=== PATIENT | female | born 1955 | race Caucasian/White ===

== ENCOUNTER 2022-12-20 11:50 | Inpatient (IN) | payer OTHER, SELFPAY ==
--- NOTE | 2022-12-09 | ECG_ITS ---
Test Reason : HTN, TIA, XUAN Blood Pressure : / mmHG Vent. Rate : 066 BPM Atrial Rate : 066 BPM P-R Int : 170 ms QRS Dur : 094 ms QT Int : 434 ms P-R-T Axes : 035 -04 103 degrees QTc Int : 454 ms Normal sinus rhythm Nonspecific ST and T wave abnormality Abnormal ECG No previous ECGs available Referred By: Khushboo Combs Electronically Signed By:MICH STRICKLAND
[2022-12-09 12:21] VITALS: BP 156/76; PULSE 68; RESP 16; O2SAT 98; BMI 37.4
--- NOTE | 2022-12-09 12:35 | HO.ANESPROP2 ---
Documented by User: Khushboo Combs NP 12/17/22 09:44 HPI - Anesthesia Eval Consult details Narrative: 67yo F for Transkambin Lumbar Interbody Fusion, 12/20/22 Stable at PCP visit 10/2022 Pending neurologic clearance [facility] Past Medical History Medical History (Updated 12/20/22 @ 16:08 by SAM Tirado) Anxiety Asthma Conversion disorder Depression Diabetes Elevated cholesterol GERD (gastroesophageal reflux disease) HTN (hypertension) Hx of renal calculi Hx TIA/stroke w/o resid Insomnia Lower back pain XUAN (obstructive sleep apnea) Overactive bladder Shoulder pain, right Single kidney Thyroid condition Use of cane as ambulatory aid Family History Family history of problems with anesthesia: No Surgical History Surgical History History of bilateral knee replacement Hx laparoscopic cholecystectomy Hx of bilateral cataract extraction Hx of colonoscopy Hx of cystoscopy Hx of fusion of cervical spine Hx of tonsillectomy S/P surgery on nasal septum History of Problems with Anesthesia: No Social History Social History Household Members: Family Household Members Other:: granddaughter Housing: House Are you a primary ambulatory care coordinator to a significant other at home: No Do you presently have visiting nurse or other home services: Yes (HEALTH CENTER MANAGER) Patient Tobacco Use Status: Never used Tobacco Use of substances other than those prescribed or required for medical reasons: No Have you been hit, kicked, punched, or otherwise hurt by someone within the past year? If so, by whom?: No Do you feel safe in your current relationship?: No Current Relationship Is there a partner from a previous relationship who is making you feel unsafe now?: No Are you made to feel afraid or neglected: No Are you DNR?: No Advance Directives: No Advance Directives Information Provided: Yes Advance Directives on File: No Do you have thoughts of harming others: None Do you have a plan to hurt others: No Plan Recently lost weight without trying: No How much weight loss: 2-13 pounds Eating poorly because of decreased appetite: Yes Nutrition screen score: 2 Nutrition Risks: No Nutritional Risk Patient : No : No Narrative Narrative: No recent illness. Low energy. No CP/SOB within limits of back pain Meds Allergies Allergy/AdvReac Type Severity Reaction Status Date / Time Sulfa (Sulfonamide Allergy Intermediate Hives Verified 12/09/22 12:04 Antibiotics) Home Medications Medication Instructions Recorded Confirmed Last Taken Type acetaminophen 300 mg-codeine 30 mg 1 tab Q6H PRN Pain 12/09/22 12/09/22 Unknown History tablet acetaminophen 500 mg tablet 500 mg PO Q8H PRN pain 12/09/22 12/09/22 Unknown History albuterol sulfate 90 mcg/actuation 2 puff inhalation Q6H PRN wheezing 12/09/22 12/09/22 Unknown History aerosol inhaler clonazepam 1 mg tablet 1.5 mg PO BID PRN Anxiety 12/09/22 12/09/22 12/20/22 History cyanocobalamin (vitamin B-12) 1,000 mcg PO DAILY 12/09/22 12/09/22 Unknown History 1,000 mcg tablet duloxetine 40 mg capsule,delayed 40 mg PO DAILY 12/09/22 12/09/22 12/20/22 History release fluticasone propionate 110 1 puff inhalation BID 12/09/22 12/09/22 Unknown History mcg/actuation HFA aerosol inhaler (Flovent HFA) fluticasone propionate 50 2 spray intranasal DAILY 12/09/22 12/09/22 Unknown History mcg/actuation nasal spray,suspension hydroxyzine HCl 10 mg tablet 10 mg PO TID 12/09/22 12/09/22 Unknown History insulin glargine 100 unit/mL (3 50 unit subcut DAILY 12/09/22 12/09/22 Unknown History mL) subcutaneous pen (Lantus Solostar U-100 Insulin) insulin lispro 100 unit/mL subcut 12/09/22 Unknown History subcutaneous pen (Humalog KwikPen (U-100) Insulin) lidocaine 5 % topical patch 1 patch topical DAILY PRN Pain 12/09/22 12/09/22 Unknown History lisinopril 20 mg tablet 20 mg PO QAM 12/09/22 12/09/22 Unknown History lovastatin 20 mg tablet 20 mg PO BEDTIME 12/09/22 12/09/22 Unknown History pantoprazole 40 mg tablet,delayed 40 mg PO DAILY 12/09/22 12/09/22 12/20/22 History release trazodone 150 mg tablet 150 mg PO BEDTIME PRN Insomnia 12/09/22 12/09/22 Unknown History vibegron 75 mg tablet (Gemtesa) 75 mg PO DAILY 12/09/22 12/09/22 Unknown History Exam Exam Date and Time: December 09, 2022 1235 Height,Weight and Vital Signs: Height 5 ft 2 in Weight 92.8 kg Last Vital Signs Pulse 68 12/09/22 12:21 Resp 16 12/09/22 12:21 BP 156/76 H 12/09/22 12:21 Pulse Ox 98 12/09/22 12:21 O2 Del Method Room Air 12/09/22 12:21 Airway Mallampati Class: III TM Dist: >3cm Neck ROM: Limited (s/p cervical spine fusion 07/2022) Loose/Missing/Broken Teeth: Yes (Upper left cap side, missing front lower) Heart: RRR Lungs: CTAB Assessment and Plan Assessment Anesthesia Assessment: Anesthesia Plan Discussed and PAT Visit Final Anesthetic Review Family History of Problems with Anesthesia: No History of Problems with Anesthesia: No Documented by User: Jorge Cox MD 12/20/22 16:30 HPI - Anesthesia Eval Consult details Narrative: 67yo F for Transkambin Lumbar Interbody Fusion, 12/20/22 Stable at PCP visit 10/2022 As per patient had a CVA in the past , Right sided weakness , balance problems . 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 Insomnia Lower back pain XUAN (obstructive sleep apnea) Overactive bladder Shoulder pain, right Single kidney Thyroid condition Use of cane as ambulatory aid Functional capacity: uses cane/walker Surgical History Surgical History History of bilateral knee replacement Hx laparoscopic cholecystectomy Hx of bilateral cataract extraction Hx of colonoscopy Hx of cystoscopy Hx of fusion of cervical spine Hx of tonsillectomy S/P surgery on nasal septum Social History Social History Household Members: Family Household Members Other:: granddaughter Housing: House Are you a primary ambulatory care coordinator to a significant other at home: No Do you presently have visiting nurse or other home services: Yes (HEALTH CENTER MANAGER) Patient Tobacco Use Status: Never used Tobacco Use of substances other than those prescribed or required for medical reasons: No Have you been hit, kicked, punched, or otherwise hurt by someone within the past year? If so, by whom?: No Do you feel safe in your current relationship?: No Current Relationship Is there a partner from a previous relationship who is making you feel unsafe now?: No Are you made to feel afraid or neglected: No Are you DNR?: No Advance Directives: No Advance Directives Information Provided: Yes Advance Directives on File: No Do you have thoughts of harming others: None Do you have a plan to hurt others: No Plan Recently lost weight without trying: No How much weight loss: 2-13 pounds Eating poorly because of decreased appetite: Yes Nutrition screen score: 2 Nutrition Risks: No Nutritional Risk Patient : No : No Meds Allergies Allergy/AdvReac Type Severity Reaction Status Date / Time Sulfa (Sulfonamide Allergy Intermediate Hives Verified 12/09/22 12:04 Antibiotics) Home Medications Medication Instructions Recorded Confirmed Last Taken Type acetaminophen 300 mg-codeine 30 mg 1 tab Q6H PRN Pain 12/09/22 12/09/22 Unknown History tablet acetaminophen 500 mg tablet 500 mg PO Q8H PRN pain 12/09/22 12/09/22 Unknown History albuterol sulfate 90 mcg/actuation 2 puff inhalation Q6H PRN wheezing 12/09/22 12/09/22 Unknown History aerosol inhaler clonazepam 1 mg tablet 1.5 mg PO BID PRN Anxiety 12/09/22 12/09/22 12/20/22 History cyanocobalamin (vitamin B-12) 1,000 mcg PO DAILY 12/09/22 12/09/22 Unknown History 1,000 mcg tablet duloxetine 40 mg capsule,delayed 40 mg PO DAILY 12/09/22 12/09/22 12/20/22 History release fluticasone propionate 110 1 puff inhalation BID 12/09/22 12/09/22 Unknown History mcg/actuation HFA aerosol inhaler (Flovent HFA) fluticasone propionate 50 2 spray intranasal DAILY 12/09/22 12/09/22 Unknown History mcg/actuation nasal spray,suspension hydroxyzine HCl 10 mg tablet 10 mg PO TID 12/09/22 12/09/22 Unknown History insulin glargine 100 unit/mL (3 50 unit subcut DAILY 12/09/22 12/09/22 Unknown History mL) subcutaneous pen (Lantus Solostar U-100 Insulin) insulin lispro 100 unit/mL subcut 12/09/22 Unknown History subcutaneous pen (Humalog KwikPen (U-100) Insulin) lidocaine 5 % topical patch 1 patch topical DAILY PRN Pain 12/09/22 12/09/22 Unknown History lisinopril 20 mg tablet 20 mg PO QAM 12/09/22 12/09/22 Unknown History lovastatin 20 mg tablet 20 mg PO BEDTIME 12/09/22 12/09/22 Unknown History pantoprazole 40 mg tablet,delayed 40 mg PO DAILY 12/09/22 12/09/22 12/20/22 History release trazodone 150 mg tablet 150 mg PO BEDTIME PRN Insomnia 12/09/22 12/09/22 Unknown History vibegron 75 mg tablet (Gemtesa) 75 mg PO DAILY 12/09/22 12/09/22 Unknown History Assessment and Plan Assessment Anesthesia Assessment: Chart Reviewed Final Anesthetic Review NPO: Yes ASA Class: III Final Preanesthetic Review: Meds/Allgs Chart Reviewed, Consent Obtained/Reviewed and Anes Risks/Benef Reviewed Patient Risk: Intermediate Procedure Risk: Intermediate Anesthetic Plan Anesthetic Plan: GA and Agree w/ Assess. and Plan Disposition: Standard PACU
[2022-12-09 13:58] LABS: Hematocrit 44.1 % (37.0-47.0); Hemoglobin 14.3 g/dl (12.0-16.0); Mean Corpuscular HGB Conc 32.4 g/dl (31.0-35.0); Mean Corpuscular Hemoglobin 26.9 pg (27.0-33.0); Mean Corpuscular Volume 82.9 fL (80.0-98.0); Mean Platelet Volume 9.4 fL (9.4-12.3); Platelet Count 324 X10*3/uL (160-400); Red Blood Count 5.32 X10*6/uL (4.20-5.50); Red Cell Distribution Width 13.8 % (11.0-16.0); White Blood Count 9.9 X10*3/uL (4.8-10.8)
[2022-12-09 14:05] LABS: Estimated Average Glucose 171 mg/dL; Hemoglobin A1c % 7.6 %
[2022-12-09 14:45] LABS: Anion Gap 12 (12-20); Blood Urea Nitrogen 13 mg/dL (9-16); Calcium 9.6 mg/dL (8.4-10.2); Carbon Dioxide 30 mmol/L (22-29); Chloride 104 mmol/L (96-108); Creatinine Clr Calc Pharmacy 71.4; Estimated Glomerular Filt Rate > 60; Glucose Random 115 mg/dL (60-115); Sodium 142 mmol/L (135-145)
[2022-12-20] VITALS (20 sets, daily range): BP systolic 149–190; BP diastolic 80–102; PULSE 73–97; RESP 11–19; TEMP 36–36.3; O2SAT 94–100
--- NOTE | ~2022-12-20 | FL_ITS ---
EXAMINATION: XR FLUOROSCOPY WITH IMAGES CLINICAL INFORMATION: Follow-up fusion. COMPARISON: None available. TECHNIQUE: Fluoroscopy Supervised By: Dr. Dooley. Fluoroscopy Time: 1.2 minutes. Cumulative Dose: 104 mGy. DAP: 1.10 Gycm2. Images: 2. FINDINGS: There are L4 and L5 pedicle screws and interconnecting nam with L4-L5 disc prosthesis for fusion. Visualized disc heights, vertebral heights are normal. FL/FL guidance in OR IMPRESSION: Fluoroscopy was provided to referring physician for L4-L5 fusion.
[2022-12-20] MEDS: methocarbamoL 750 MG TABLET PO (07:08)
[2022-12-20] MEDS: Gabapentin 600 MG TABLET 300 MG PO (07:08)
[2022-12-20] MEDS: Lactated Ringers 1,000 ML 100 ML IVCONT (07:10)
--- NOTE | 2022-12-20 10:28 | W.PM.OPN ---
Operative Note Operative Note Date of Service: 12/20/22 Narrative: Preoperative Diagnosis: (1) lumbar degenerative disc disease L4-5 with chronic back pain (2) Same Procedure: 1) L4-5oblique lateral lumbar interbody fusion with discectomy, preparation of the endplates and placement of a bullet cage packed with allograft, anterior to the transverse process and modified prone position, with intraoperative biplanar fluoroscopy imaging and electrophysiological monitoring 2) L4-5posterior minimally invasive pedicle screw placement and posterior lateral instrumentation and fusion with electrophysiological monitoring Consent Informed Consent was obtained for this operation. I have explained the nature, purpose and benefits of the operation. I have discussed the risks and benefit of the operation including possible complications or adverse events with patient/family. Alternative(s) were discussed with the patient with their relative benefits and risks as well as the consequences of not accepting the operation were included in obtaining consent. Surgeon: BORA ARNOLD MD, PHD Procedure Assisted By: Alberto Olmos Description of Procedure: days is a 67-year-old female suffered from chronic back pain due to severe lumbar degenerative disease L4-5.The patient was offered an oblique lumbar lateral interbody fusion followed by a posterior lateral instrumented fusion[]. The procedure and complications were explained and he was consented. The patient was brought to the operating room and endotracheally intubated. The patient was put in a prone position on the Rell spine table. 2C arms were installed for fluoroscopy. Prepping and draping was done followed by timeout. The landmarks, including spinal processes, transverse processes, disc space, endplates and pedicles are identified and marked. The following steps are taken for the L4-5 level: Cage size 9 mm high and 30 mm long titanium . A small incision was made superior to the mid iliac crest and then using biplanar fluoroscopy visualization, under electrophysiological monitoring and stimulation, we introduced an electrophysiological probe through the retroperitoneal space into the desired disc anterior to the transverse process and then passed it into the disc space after finding a silent window. The sleeve was retained and the probe was removed, then the K wire was passed sequentially into the disc space. A dilating tube was then passed along the same route. Following this, a working channel was manually held in position while a series of disc cleaning tools were passed through the channel to remove the affected disc under clear and direct biplanar fluoroscopic visualization, decompress the nerve roots and equal corticated vertebral endplates at this segment. Arthrodesis of the intervertebral space for an anterior retroperitoneal exposure and application of intervertebral biomechanical device was then accomplished by using the working channel that had been placed into the retroperitoneal space anterior to the transverse process. After adequate decompression and preparation of the endplates, we then put allograft anterior into the disc space followed by a titanium interbody spacer, which is packed tightly with allograft bone for stabilization and arthrodesis of the anterior vertebral space and inserted the cage into the midportion of the intervertebral disc. This again was done on the biplanar fluoroscopic visualization. All bone was confined to the borders of the disc space. The following steps are then taken for the L4-5 level: Bilateral L4-5 screws with a diameter of 6.5 x 40 mm. 2C arms were installed for fluoroscopy. A right paramedian incision was made lateral from the L4 pedicle. The Pediguard tap was used to create a transpedicular trajectory into the vertebral body. The K wire was inserted. The steps were repeated for the left L4 and bilateral L5 pedicles, A specially designed instrument was passed over the K wires to decorticate the posterior lateral gutter. A total of 4 pedicle screws were inserted with the above-mentioned diameters for the L4-5 level. Neurostimulation of the pedicle screw of showed no abnormalities. Bilaterally a 40mm nam was inserted and locked down with locking caps. Final x-rays and AP and lateral projection showed good position of the interbody device and instrumentation. Allograft was laid down in the posterior lateral gutter to complete the posterior lateral fusion. The paramedian incisions and the incision in the flank were closed in 2 layers. Steri-Strips were used to approximate the incisions. An OpSite with Tegaderm was used to cover the incision. All sponge and needle counts were correct. The patient was extubated and transported in a stable condition to the recovery room. This procedure was done with the aid of a physican's primary teaching assistant as a qualified resident was not available. The physician primary teaching assistant was critical for the following aspects of surgery : Insertion of the bilateral rods and locked down the rods with locking caps. Hemostasis and closure of the incisions. Anesthesia: General Estimated Blood Loss (ml): Ten Specimen: None Duration of Surgery: 75 minutes Postoperative Plan: Admit to floor for monitoring
--- NOTE | 2022-12-20 11:13 | PHA.MEDREC ---
Pharmacy Consult ? Medication Reconciliation Pharmacy has completed the medication reconciliation.
--- OUTSIDE RECORDS SUMMARY | 2022-12-20 11:20 | XMS_ITS | Continuity of Care Document ---
Author Name Unknown Organization [facility] Address [address] [facility], [address], [address] [place] [phone]- Care Team Providers Care Corporate Licensed Broker Name Role Phone Spike Araujo MD Primary Care Physician [id number] Date(s): 02/09/21 - 03/11/21 [facility] [address] [facility], [address]rd Floor, [address] [place] [phone]- Allergies, Adverse Reactions, Alerts Substance Reaction Severity Status codeine Active sulfADIAZINE Active Medications aspirin 81 mg oral tablet 1 tablet = 81 mg, By Mouth, Daily, # 30 tablet, 0 Refills, Maintenance, 03/25/14 21:09:06, Tablet Start Date: 03/25/14 Status: Ordered fluoxetine 10 mg oral capsule 1 capsule = 10 mg, By Mouth, Daily, # 30 capsule, 0 Refills, Maintenance, 03/25/14 21:10:04, Capsule Start Date: 03/25/14 Status: Ordered GlipiZIDE = 5 mg, By Mouth, Daily, 0 Refills, Maintenance, 06/23/17 11:57:20 Start Date: 06/23/17 Status: Ordered KlonoPIN 0.5 mg oral tablet 1 tablet = 0.5 mg, By Mouth, 2 times a day, 0 Refills, Maintenance, 06/23/17 11:57:57, Tablet Start Date: 06/23/17 Status: Ordered lantus solostar 100 unit/ml lantus solostar 100 unit/ml, Refills 0, Maintenance, 01/26/21 14:19:00 EDT, Supply Start Date: 01/26/21 Status: Ordered lidocaine 5% topical film 1 patch, Topically, Daily, PRN Pain , Mild, remove after 12 hours, # 13 each, 0 Refills, Maintenance, 01/26/21 14:20:00 EDT, Film, Partial fill upon patient request if the prescription is for a schedule II opioid drug. Start Date: 01/26/21 Status: Ordered lisinopril 10 mg oral tablet 10 mg, 1, tablet, By Mouth, Daily, # 30 tablet, Refills 0, Tot. Refills 0, Maintenance, 06/24/17 13:24:43, Route to Pharmacy Electronically, [id number], [facility]/pharmacy #[id number] Start Date: 06/24/17 Status: Ordered lovastatin 20 mg oral tablet 1 tablet, By Mouth, Daily, # 30 tablet, 0 Refills, Maintenance, Tablet Start Date: 01/13/11 Status: Ordered metformin 500 mg oral tablet 1 tablet, By Mouth, 2 times a day, # 180 tablet, 0 Refills, Maintenance, Tablet Start Date: 01/13/11 Status: Ordered one touch verio test stripts one touch verio test stripts, Refills 0, Maintenance, 01/26/21 14:18:00 EDT, Supply Start Date: 01/26/21 Status: Ordered one touh verio meter one touh verio meter, Refills 0, Maintenance, 01/26/21 14:21:00 EDT, Supply Start Date: 01/26/21 Status: Ordered pantoprazole 40 mg oral delayed release tablet 1 tablet = 40 mg, By Mouth, Daily, 0 Refills, Maintenance, 01/26/21 14:19:00 EDT Start Date: 01/26/21 Status: Ordered traZODone 50 mg oral tablet 50 mg, 1, tablet, By Mouth, 2 times a day, Refills 0, Maintenance, 01/26/21 14:19:00 EDT, Partial fill upon patient request if the prescription is for a schedule II opioid drug. Start Date: 01/26/21 Status: Ordered Wellbutrin XL 300 mg/24 hours oral tablet, extended release 1 tablet = 300 mg, By Mouth, Every 24 hours, 0 Refills, Maintenance Start Date: 01/13/11 Status: Ordered Problem List Condition Effective Dates Status Health Status Inform ant Fibrous joint(Confirmed) Active Social History Social History Type Response Smoking Status Former smoker entered on: 06/23/17 Sex
--- OUTSIDE RECORDS SUMMARY | 2022-12-20 11:20 | XMS_ITS | Continuity of Care Document ---
Author Name Unknown Organization [facility] Address Unknown Care Team Providers Care Provider Relations Manager Name Role Phone Spike Araujo MD Primary Care Phys[id number] Date(s): 04/24/21 - 05/24/21 [facility] Allergies, Adverse Reactions, Alerts Substance Reaction Severity [...] 06/23/17 11:57:20 Start Date: 06/23/17 Status: Ordered hydrOXYzine hydrochloride 10 mg oral tablet 1 tablet, By Mouth, 3 times a day, # 90 tablet, 1 Refills, [facility] [id number], 158, cm, 04/20/21 10:34:00 EDT, Height, 86.5, kg, 03/28/21 14:42:00 EDT, Dry Weight Start Date: 05/12/21 Status: Ordered KlonoPIN 0.5 mg oral tablet [...] Maintenance, 06/24/17 13:24:43, Route to Pharmacy Electronically, [id number], [facility]/pharmacy #[id number] Start Date: 06/24/17 Status: Ordered [...]
--- OUTSIDE RECORDS SUMMARY | 2022-12-20 11:20 | XMS_ITS | Continuity of Care Document ---
Author Name Unknown Organization [facility] Address [address] [place] [id number]- Care Team Providers Care Monitor Technician Name Role Phone Spike Araujo MD Primary Care Physician [phone] Encounter [facility] Date(s): 10/28/21 - 02/14/[address] [address]- Attending Physician: Leila Mcintosh MD Admitting Physician: Leila Mcintosh MD Referring Physician: Spike Araujo MD Allergies, Adverse Reactions, Alerts Substance Reaction Severity Status codeine Active sulfADIAZINE Active Medications FLUoxetine 40 mg oral capsule 1 capsule = 40 mg, By Mouth, Daily, # 30 capsule, 0 Refills, Maintenance, 08/26/21 18:53:00 EST, Capsule, Partial fill upon patient request if the prescription is for a schedule II opioid drug. Start Date: 08/26/21 Status: Ordered hydrOXYzine hydrochloride 10 mg oral tablet 1 tablet, By Mouth, 3 times a day, # 90 tablet, 0 Refills, Maintenance, 10/29/21 21:19:00 EST, [facility]/pharmacy #[id number], 157, cm, 08/26/21 18:28:00 EST, Height, 88.5, kg, 08/26/21 18:28:00 EST, Dry Weight Start Date: 10/29/21 Status: Ordered KlonoPIN 0.5 mg oral tablet 2 tablet = 1 mg, By Mouth, 2 times a day, 0 Refills, Maintenance, 06/23/17 11:57:57 EDT, Tablet Start Date: 06/23/17 Status: Ordered lantus solostar 100 unit/ml lantus solostar 100 unit/ml, 24 units, Daily, Refills 0, Maintenance, 01/26/21 14:19:00 EDT, Supply Start Date: 01/26/21 Status: Ordered lidocaine 5% topical film 1 patch, Topically, Daily, PRN Pain , Mild, remove after 12 hours, # 13 each, 0 Refills, Maintenance, 01/26/21 14:20:00 EDT, Film, Partial fill upon patient request if the prescription is for a schedule II opioid drug. Start Date: 01/26/21 Status: Ordered lisinopril 20 mg oral tablet 20 mg, 1, tablet, By Mouth, Daily, # 30 tablet, Refills 0, Maintenance, 08/26/21 18:53:00 EST, Partial fill upon patient request if the prescription is for a schedule II opioid drug. Start Date: 08/26/21 Status: Ordered lovastatin 20 mg oral tablet 1 tablet, By Mouth, Daily, # 30 tablet, 0 Refills, Maintenance, Tablet Start Date: 01/13/11 Status: Ordered metformin 500 mg oral tablet 2 tablet = 1,000 mg, By Mouth, 2 times a day, # 180 tablet, 0 Refills, Maintenance, 01/13/11 6:41:46 EDT, Tablet Start Date: 01/13/11 Status: Ordered pantoprazole 40 mg oral delayed [...] Effective Dates Status Health Status Inform ant Chest pain(Confirmed) 07/07/17 Active Fibrous joint(Confirmed) Active Gastroesophageal reflux disease(Confirmed) 09/02/05 Active History of total knee arthroplasty(Confirmed) 01/31/06 Active History of TIAs(Confirmed) Active Hypercholesterolemia(Confirmed) 07/15/10 Active Hypertensive disorder(Confirmed) 08/01/17 Active Lumbago with sciatica(Confirmed) 09/04/18 Active Microalbuminuria(Confirmed) 05/28/10 Active Neuropathy of lower limb(Confirmed) 01/12/19 Active Obese class II(Confirmed) Active Obstructive sleep apnea syndrome(Confirmed) 04/24/21 Active Osteoarthritis(Confirmed) 11/22/13 Active Recurrent major depression i n partial remission(Confirmed) 01/27/15 Active Tremor(Confirmed) 09/04/18 Active Type 2 diabetes mellitus(Confirmed) 02/09/16 Active Urinary incontinence(Confirmed) 09/15/21 Active Vitamin D deficiency(Confirmed) 11/02/10 Active Social History Social History Type Response Smoking Status Former smoker entered on: 06/23/17 Sex
[2022-12-20 11:21] LABS: Glucose, Whole Blood 234 mg/dL (60-115)
--- OUTSIDE RECORDS SUMMARY | 2022-12-20 11:21 | XMS_ITS | Continuity of Care Document ---
Author Name Unknown Organization [facility] Address [address] [facility], [address], [address] [place] [id number]- Care Team Providers Care Table Keeper Name Role Phone Spike Araujo MD Primary Care Phys[id number] Date(s): 02/16/21 - 03/18/21 [facility] [address] [facility], [address], [address] [place] [id number]- Allergies, Adverse Reactions, Alerts Substance Reaction Severity [...] Maintenance, 06/24/17 13:24:43, Route to Pharmacy Electronically, [id number], [facility]/pharmacy #[id number] Start Date: 06/24/17 Status: Ordered lovastatin [...]
--- OUTSIDE RECORDS SUMMARY | 2022-12-20 11:21 | XMS_ITS | Continuity of Care Document ---
Author Name Unknown Organization [facility] Address Unknown Care Team Providers Care Neighborhood Aide Name Role Phone Spike Araujo MD Primary Care Phys[id number] Date(s): 05/26/21 - 06/25/21 [facility] Attending Physician: Chelsey Kramer Admitting Physician: Chelsey Kramer Referring Physician: Chelsey Kramer Allergies, Adverse Reactions, Alerts Substance Reaction Severity [...] a day, # 90 tablet, 1 Refills, [facility]15, 158, cm, 06/05/21 2:53:00 EDT, Height, 87, kg, 06/05/21 2:53:00 EDT, Dry Weight Start Date: 06/07/21 Status: Ordered KlonoPIN 0.5 mg oral tablet [...] Maintenance, 06/24/17 13:24:43, Route to Pharmacy Electronically, [id number], [facility]/pharmacy #[id number] Start Date: 06/24/17 Status: Ordered [...]
--- OUTSIDE RECORDS SUMMARY | 2022-12-20 11:21 | XMS_ITS | Continuity of Care Document ---
Author Name Unknown Organization [facility] Address [address] [facility], [address] Floor, [address] [place] [address]- Care Team Providers Care Tower Air Traffic Control Specialist Name Role Phone Spike Araujo MD Primary Care Physician [phone] Encounter [facility] [id number] Date(s): 12/01/20 - 03/05/21 [facility] [address] [facility], 3rd Floor, [address] [place] [address]- Attending Physician: Preethi Bueno Admitting Physician: Preethi Bueno Referring Physician: Spike Araujo MD Allergies, Adverse [...] Maintenance, 06/24/17 13:24:43, Route to Pharmacy Electronically, [id number], [facility]/pharmacy #[id number] Start Date: 06/24/17 [...]
--- OUTSIDE RECORDS SUMMARY | 2022-12-20 11:21 | XMS_ITS | Continuity of Care Document ---
Author Name Unknown Organization [facility] Address Unknown Care Team Providers Care Material Assistant Name Role Phone Spike Araujo MD Primary Care Physician Encounter [facility] Date(s): 03/18/21 - 04/17/21 [facility] Allergies, Adverse Reactions, Alerts Substance Reaction [...] Maintenance, 06/24/17 13:24:43, Route to Pharmacy Electronically, [id number], [facility]/pharmacy #[id number] Start Date: 06/24/17 Status: Ordered lovastatin [...]
--- OUTSIDE RECORDS SUMMARY | 2022-12-20 11:21 | XMS_ITS | Continuity of Care Document ---
Author Name Unknown Organization [facility] Address Unknown Care Team Providers Care Chainsaw Mechanic Name Role Phone Spike Araujo MD Primary Care Physician Encounter [facility] Date(s): 05/19/21 - 06/18/21 [facility] Allergies, Adverse Reactions, Alerts Substance [...] a day, # 90 tablet, 1 Refills, [facility] [address]52, 158, cm, 06/05/21 2:53:00 EDT, Height, 87, [...] Maintenance, 06/24/17 13:24:43, Route to Pharmacy Electronically, [id number], [facility]/pharmacy #[id number] Start Date: 06/24/17 Status: Ordered [...]
--- OUTSIDE RECORDS SUMMARY | 2022-12-20 11:21 | XMS_ITS | Continuity of Care Document ---
Author Name Unknown Organization [facility] Address [address] [place] [address]- Care Team Providers Care Driver Messenger Name Role Phone Spike Araujo MD Primary Care Physician Encounter [facility] Date(s): 03/28/21 - 03/28/[address] [address]- Encounter Diagnosis Weakness(Final) - 03/28/21 Discharge Disposition: A-D/C Home Attending Physician: Nayan Diaz MD Admitting Physician: Nayan Diaz MD Referring Physician: Not on Staff, Referring MD Allergies, Adverse Reactions, Alerts Substance Reaction Severity Status codeine Active sulfADIAZINE Active Medications Acetaminophen Tablet 650 mg, Tablet, By Mouth, Once, STAT, 03/28/21 15:28:00 EDT, Stop date 03/28/21 15:28:00 EDT Start Date: 03/28/21 Stop Date: 03/28/21 Status: Completed aspirin 81 mg oral tablet 1 tablet [...] Maintenance, 06/24/17 13:24:43, Route to Pharmacy Electronically, [id number], [facility]/pharmacy #[id number] Start Date: 06/24/17 Status: Ordered [...] Health Status Inform ant Fibrous joint(Confirmed) Active Vital Signs Most recent to oldest [Reference Range]: 1 2 3 Height 158 cm (03/28/21 2:39 PM) 158 cm (03/28/21 2:39 PM) Weight 86.5 kg (03/28/21 2:39 PM) 86.5 kg (03/28/21 2:39 PM) Oxygen Saturation [94-100 %] 100 % (03/28/21 6:46 PM) 100 % (03/28/21 5:31 PM) 100 % (03/28/21 3:14 PM) Pulse Rate [55-90 bpm] 77 bpm (03/28/21 6:46 PM) 78 bpm (03/28/21 5:31 PM) 78 bpm (03/28/21 3:14 PM) Body Mass Index [18.5-24.99] 34.65 *>HHI* (03/28/21 2:39 PM) Blood Pressure [90-138/55-84 mm Hg] 163/81mm Hg *H* (03/28/21 6:46 PM) 165/73mm Hg *H* (03/28/21 5:31 PM) 143/66mm Hg *H* (03/28/21 3:14 PM) Respiratory Rate [16-30 br/min] 16 br/min (03/28/21 6:46 PM) 16 br/min (03/28/21 5:31 PM) 16 br/min (03/28/21 4:36 PM) Temperature [96.8-100.4 DegF] 97.5 DegF (03/28/21 6:46 PM) 97.5 DegF (03/28/21 5:31 PM) 98.1 DegF (03/28/21 3:14 PM) Mode of Delivery (Oxygen) Room air (03/28/21 6:46 PM) Room air (03/28/21 5:31 PM) Room air (03/28/21 3:14 PM) Blood pressure sites Arm, right (03/28/21 6:46 PM) Arm, right (03/28/21 5:31 PM) Arm, right (03/28/21 3:14 PM) Temperature Route Oral (03/28/21 6:46 PM) Oral (03/28/21 5:31 PM) Oral (03/28/21 3:14 PM) Dry Weight 86.5 kg (03/28/21 2:39 PM) 86.5 kg (03/28/21 2:39 PM) Weight Obtained Via Patient/family state d (03/28/21 2:39 PM) Dry Weight Obtained Via Patient/family s tated (03/28/21 2:39 PM) Social History Social History Type Response Smoking Status Former smoker entered on: 06/23/17 Sex
--- OUTSIDE RECORDS SUMMARY | 2022-12-20 11:21 | XMS_ITS | Continuity of Care Document ---
Author Name Unknown Organization [facility] Address Unknown Care Team Providers Care Corporate Strategy Analyst Name Role Phone Spike Araujo MD Primary Care Physician [place] [facility] Date(s): 03/09/21 - 04/08/21 [facility] Allergies, Adverse Reactions, Alerts Substance Reaction [...] Maintenance, 06/24/17 13:24:43, Route to Pharmacy Electronically, [id number], [facility]/pharmacy #[id number] Start Date: 06/24/17 Status: [...]
--- OUTSIDE RECORDS SUMMARY | 2022-12-20 11:21 | XMS_ITS | Continuity of Care Document ---
Author Name Unknown Organization [facility] Address Unknown Care Team Providers Care Sandblaster Supervisor Name Role Phone Spike Araujo MD Primary Care Physician [phone] [id number] Date(s): 04/03/21 - 05/03/21 [facility] Allergies, Adverse Reactions, Alerts Substance [...] hydrOXYzine hydrochloride 10 mg oral tablet 1 tablet = 10 mg, By Mouth, 3 times a day, # 90 tablet, 1 Refills, Maintenance, 04/20/21 12:00:00 EDT, [facility]/pharmacy #[id number], Partial fill upon patient request if the prescription is for a schedule II opioid drug., 158, cm, 04/20/21 10:34:00 EDT, Height,... Start Date: 04/20/21 Status: Ordered KlonoPIN 0.5 mg oral tablet [...] Maintenance, 06/24/17 13:24:43, Route to Pharmacy Electronically, [id number], [facility]/pharmacy #[id number] Start Date: 06/24/17 [...]
--- OUTSIDE RECORDS SUMMARY | 2022-12-20 11:21 | XMS_ITS | Continuity of Care Document ---
Author Name Unknown Organization [facility] Address [address] [place] [address]- Care Team Providers Care Professor Of Exercise Science Name Role Phone Spike Araujo MD Primary Care Physician [id number] Date(s): 04/24/21 - 08/09/21 [facility] [address] [address]- Attending Physician: Leila Mcintosh MD Admitting Physician: [...] a day, # 90 tablet, 1 Refills, [facility] [address], 158, cm, 06/05/21 2:53:00 EDT, Height, 87, [...] Maintenance, 06/24/17 13:24:43, Route to Pharmacy Electronically, [id number], [facility]/pharmacy #[id number] Start Date: 06/24/17 Status: Ordered [...]
--- OUTSIDE RECORDS SUMMARY | 2022-12-20 11:21 | XMS_ITS | Continuity of Care Document ---
Author Name Unknown Organization [facility] Address Unknown Care Team Providers Care Manager Wastewater Name Role Phone Spike Araujo MD Primary Care Physician Encounter [facility] Date(s): 04/24/21 - 05/24/21 [facility] Allergies, Adverse Reactions, Alerts Substance [...] a day, # 90 tablet, 1 Refills, [facility] 87844, 158, cm, 04/20/21 10:34:00 EDT, Height, 86.5, [...] Maintenance, 06/24/17 13:24:43, Route to Pharmacy Electronically, [id number], [facility]/pharmacy #[id number] Start Date: 06/24/17 Status: Ordered [...]
--- OUTSIDE RECORDS SUMMARY | 2022-12-20 11:21 | XMS_ITS | Continuity of Care Document ---
Author Name Unknown Organization [facility] Address Unknown Care Team Providers Care Steamship Agent Name Role Phone Spike Araujo MD Primary Care Physician Encounter [facility] Date(s): 03/10/21 - 04/09/21 [facility] Allergies, Adverse Reactions, Alerts Substance [...] Maintenance, 06/24/17 13:24:43, Route to Pharmacy Electronically, [id number], [facility]/pharmacy #[id number] Start Date: 06/24/17 [...]
--- OUTSIDE RECORDS SUMMARY | 2022-12-20 11:21 | XMS_ITS | Continuity of Care Document ---
Author Name Unknown Organization [facility] Address [address] [facility], [address]r d Floor, [address] [place] [address]- Care Team Providers Care Energy Conservation Engineer Name Role Phone Spike Araujo MD Primary Care Physician [phone] [id number] Date(s): 02/09/21 - 03/11/21 [facility] [address] [facility], 3rd Floor, [address] [place] [address]- Allergies, Adverse Reactions, Alerts Substance Reaction Severity [...] Maintenance, 06/24/17 13:24:43, Route to Pharmacy Electronically, [id number], [facility]/pharmacy #[id number] Start Date: 06/24/17 Status: [...]
--- OUTSIDE RECORDS SUMMARY | 2022-12-20 11:21 | XMS_ITS | Continuity of Care Document ---
Author Name Unknown Organization [facility] Address Unknown Care Team Providers Care Stitching Machine Feeder Or Offbearer Name Role Phone Spike Araujo MD Primary Care Physician Encounter [facility] Date(s): 05/07/21 - 06/06/21 [facility] Allergies, Adverse Reactions, Alerts Substance Reaction Severity Status codeine Active sulfADIAZINE Active Medications aspirin 81 mg oral tablet 1 tablet = 81 mg, By Mouth, Daily, # 30 tablet, 0 Refills, Maintenance, 03/25/14 21:09:06, Tablet Start Date: 03/25/14 Status: Ordered Augmentin 500 mg-125 mg oral tablet 1 tablet, By Mouth, Every 8 hours, for 5 days, # 15 tablet, 0 Refills, Acute 06/10/21 8:38:00 EDT, 06/05/21 8:38:00 EDT, Tablet, [facility]acy #[id number], Partial fill upon patient request if the prescription is for a schedule II opioid drug., 158, cm, 05/22... Start Date: 06/05/21 Stop Date: 06/10/21 Status: Ordered azithromycin 250 mg oral tablet 1 tablet = 250 mg, By Mouth, Daily, for 4 days, # 4 each, 0 Refills, Acute 06/09/21 8:38:00 EDT, 06/05/21 8:38:00 EDT, Tablet, [id number], Partial fill upon patient request if the prescription is for a schedule II opioid drug., 158, cm, ... Start Date: 06/05/21 Stop Date: 06/09/21 Status: Ordered fluoxetine 10 mg oral capsule [...] a day, # 90 tablet, 1 Refills, [facility] 99487, 158, cm, 04/20/21 10:34:00 EDT, Height, 86.5, [...] Maintenance, 06/24/17 13:24:43, Route to Pharmacy Electronically, [id number], [facility]/pharmacy #[id number] Start Date: 06/24/17 Status: Ordered [...]
--- OUTSIDE RECORDS SUMMARY | 2022-12-20 11:21 | XMS_ITS | Continuity of Care Document ---
Author Name Unknown Organization [facility] Address Unknown Care Team Providers Care Internet Specialist Name Role Phone Sipke Araujo MD Primary Care Physician Encounter [facility] Date(s): 03/19/21 - 04/18/21 [facility] Allergies, Adverse Reactions, [...] Maintenance, 06/24/17 13:24:43, Route to Pharmacy Electronically, [id number], [facility]/pharmacy #[id number] Start Date: 06/24/17 Status: Ordered [...]
--- OUTSIDE RECORDS SUMMARY | 2022-12-20 11:21 | XMS_ITS | Continuity of Care Document ---
Author Name Unknown Organization [facility] Address Unknown Care Team Providers Care Aquatic Centre Manager Name Role Phone Spike Araujo MD Primary Care Physician Encounter [facility] Date(s): 04/17/21 - 05/17/21 [facility] Allergies, Adverse Reactions, Alerts Substance [...] a day, # 90 tablet, 1 Refills, [facility] 93155, 158, cm, 04/20/21 10:34:00 EDT, Height, 86.5, [...] Maintenance, 06/24/17 13:24:43, Route to Pharmacy Electronically, [id number], [facility]/pharmacy #[id number] Start Date: 06/24/17 [...]
--- OUTSIDE RECORDS SUMMARY | 2022-12-20 11:21 | XMS_ITS | Continuity of Care Document ---
Author Name Unknown Organization [facility] Address [address] [place] [address]- Care Team Providers Care Billet Heater Operator Name Role Phone Spike Araujo MD Primary Care Physician Encounter [facility] Date(s): 01/08/21 - 02/07/[address] [address]- Attending Physician: Chelsey Kramer Admitting Physician: AdmtrChelsey Referring Physician: Admtr, ArMarcin Allergies, Adverse Reactions, Alerts Substance Reaction Severity [...] Maintenance, 06/24/17 13:24:43, Route to Pharmacy Electronically, [id number], [facility]/pharmacy #[id number] Start Date: 06/24/17 Status: Ordered lovastatin 20 mg oral tablet 1 tablet, By Mouth, Daily, # 30 tablet, 0 Refills, Maintenance, Tablet Start Date: 01/13/11 Status: Ordered metformin 500 mg oral tablet 1 tablet, By Mouth, 2 times a day, # 180 tablet, 0 Refills, Maintenance, Tablet Start Date: 01/13/11 Status: Ordered Neurontin 100 mg oral capsule See Instructions, PRN Pain , Mild, 2 capsule By Mouth 4 times a day, 0 Refills, Maintenance, 02/10/11 7:32:42 Start Date: 02/10/11 Status: Ordered one touch verio test stripts [...]
--- OUTSIDE RECORDS SUMMARY | 2022-12-20 11:21 | XMS_ITS | Continuity of Care Document ---
Author Name Unknown Organization [facility] Address Unknown Care Team Providers Care Mohel Name Role Phone Spike Araujo MD Primary Care Physician Encounter [facility] Date(s): 03/18/21 - 04/17/21 [facility] Allergies, Adverse Reactions, Alerts Substance Reaction [...] Maintenance, 06/24/17 13:24:43, Route to Pharmacy Electronically, [id number], [facility]/pharmacy #[id number] Start Date: [...]
--- OUTSIDE RECORDS SUMMARY | 2022-12-20 11:21 | XMS_ITS | Continuity of Care Document ---
Author Name Unknown Organization [facility] Address [address] [facility], [address] d Floor, [address] [place] [address]- Care Team Providers Care Automobile Accessories Installer Name Role Phone Spike Araujo MD Primary Care Physician Encounter [facility] Date(s): 01/14/21 - 02/13/21 [facility] [address] [facility], 3rd Floor, [address] [place] [address] Allergies, Adverse Reactions, Alerts Substance Reaction Severity [...] Maintenance, 06/24/17 13:24:43, Route to Pharmacy Electronically, [id number], [facility]/pharmacy #[id number] Start Date: 06/24/17 Status: [...]
--- OUTSIDE RECORDS SUMMARY | 2022-12-20 11:21 | XMS_ITS | Continuity of Care Document ---
Author Name Unknown Organization [facility] Address [address] [facility], 3r d Floor, [address] [place] [address]- Care Team Providers Care Lock Master Name Role Phone Spike Araujo MD Primary Care Physician [place] [facility] [place]s): 01/26/21 - 02/25/21 [facility] [address] [facility], 3rd Floor, [address] [place] [address]- Attending Physician: Chelsey Kramer Admitting Physician: Chelsey Kramer Referring Physician: AdmtrChelsey Allergies, Adverse Reactions, Alerts Substance Reaction Severity [...] Maintenance, 06/24/17 13:24:43, Route to Pharmacy Electronically, [id number], [facility]/pharmacy #[id number] Start [...] a schedule II opioid drug. Start Date: 6/7/21 Status: Ordered Wellbutrin XL 300 mg/24 hours oral tablet, extended release 1 tablet = 300 mg, By Mouth, Every 24 hours, 0 Refills, Maintenance Start Date: 01/13/11 Status: Ordered Problem List Condition Effective Dates Status Health Status Inform ant Fibrous joint(Confirmed) Active Social History Social History Type Response Smoking Status Former smoker entered on: 06/23/17 Sex
--- OUTSIDE RECORDS SUMMARY | 2022-12-20 11:21 | XMS_ITS | Continuity of Care Document ---
Author Name Unknown Organization [facility] Address [address] [place] [address]- Care Team Providers Care Music Publisher Name Role Phone Spike Araujo MD Primary Care Physician Encounter [facility] [place] Date(s): 07/23/21 - 08/22/[address] [address]- Attending Physician: Chelsey Kramer Admitting Physician: Chelsey [...] a day, # 90 tablet, 1 Refills, [facility] [address], 158, cm, 06/05/21 2:53:00 EDT, Height, 87, [...] Maintenance, 06/24/17 13:24:43, Route to Pharmacy Electronically, [id number], [facility]/pharmacy #[id number] Start Date: 06/24/17 Status: Ordered lovastatin [...]
--- OUTSIDE RECORDS SUMMARY | 2022-12-20 11:21 | XMS_ITS | Continuity of Care Document ---
Author Name Unknown Organization [facility] Address Unknown Care Team Providers Care Workforce Development Program Director Name Role Phone Spike Araujo MD Primary Care Phys[id number] Date(s): 04/02/21 - 05/02/21 [facility] Allergies, Adverse Reactions, Alerts Substance [...] tablet, 1 Refills, Maintenance, 04/20/21 12:00:00 EDT, [facility]/pharmacy #[id number], Partial fill upon patient request if the [...] Maintenance, 06/24/17 13:24:43, Route to Pharmacy Electronically, [id number], [facility]/pharmacy #[id number] Start Date: 06/24/17 [...]
[2022-12-20] MEDS: fentaNYL citrate/PF 100 MCG/2 ML VIAL 25 MCG IVPUSH ×2 (12:46→13:00)
[2022-12-20] MEDS: 0.9 % Sodium Chloride 1,000 ML 75 ML IVCONT (15:16)
[2022-12-20] MEDS: Acetaminophen 1,000 MG/100 ML PIGGYBACK 400 MG IV ×2 (15:22→20:50)
[2022-12-20] MEDS: Ketorolac Tromethamine 15 MG/ML VIAL IVPUSH ×2 (15:49→21:55)
[2022-12-20] MEDS: ceFAZolin Sodium/Dextrose,Iso 2 GM/50 ML PIGGYBACK IV ×2 (15:50→21:11)
--- NOTE | 2022-12-20 16:04 | HO.NEURO.PN ---
Neurosurgery Operative Note Date of Service: 12/20/22 Assessment & Plan Assessment & Plan (1) Back pain: Code(s): M54.9 - Dorsalgia, unspecified Category: Medical Plan Postoperative day 0 L4-5 trans Kambin oblique lateral lumbar interbody fusion L4-5 Patient reports main could symptom is back pain, her back feels stiff. Denies any pain radiating down the legs, tingling or numbness. Blood pressure slightly high postoperatively into the 160s, but the patient takes her antihypertensives in the evening. Other than that no new complaints, she arrived on the floor about an hour ago. Physical exam: She is awake alert oriented, still slightly sleepy from anesthesia. She moves bilateral lower extremities with full strength, normal sensation, back dressing some slight amount of oozing but no signs of hematoma. Impression: Postop day 0., L4-5 trans Kambin oblique lateral lumbar out of interbody fusion using minimally invasive approach., otherwise doing okay with the exception of back pain which we expect. Continue IV Tylenol, IV Toradol, oxycodone, Flexeril as needed. Patient will work with Physical therapy tomorrow, and plan for discharge hopefully to rehab tomorrow. Patient seen at bedside with Dr. Dooley.
[2022-12-20 16:30] LABS: Glucose, Whole Blood 242 mg/dL (60-115)
[2022-12-20] MEDS: Insulin Lispro 100 UNIT/ML 3 ML VIAL SUBCUT ×2 (16:35→20:52)
--- NOTE | 2022-12-20 18:05 | PC.NURSE ---
Pt drowsy most of shift since arriving to unit. Arousable. Dozing while eating dinner, only able to pick at the food. Pain better at rest. Repositioning and rolling in the bed pt begins to moan in pain. Pt eval but pt still sleepy. Will attempt to ambulate pt once more awake. Purewick placed due to pt incontinence. Fungal areas noted under abdominal folds. Red blotches nted to left arm.
[2022-12-20] MEDS: oxyCODONE HCl Immed Release 5 MG TABLET PO (18:39)
[2022-12-20] MEDS: Cyclobenzaprine HCl 5 MG TABLET PO (20:52)
[2022-12-20] MEDS: Docusate Sodium 100 MG CAPSULE PO (20:52)
[2022-12-20] MEDS: HYDROmorphone HCl 1 MG/ML SYRINGE IVPUSH (22:30)
[2022-12-21 03:15] VITALS: BP 123/61; PULSE 81; RESP 14; TEMP 36.2; O2SAT 98
[2022-12-21] MEDS: Ketorolac Tromethamine 15 MG/ML VIAL IVPUSH ×4 (03:26→21:49)
[2022-12-21] MEDS: Acetaminophen 1,000 MG/100 ML PIGGYBACK 400 MG IV (03:26)
[2022-12-21] MEDS: ceFAZolin Sodium/Dextrose,Iso 2 GM/50 ML PIGGYBACK IV (03:41)
[2022-12-21] MEDS: 0.9 % Sodium Chloride 1,000 ML 75 ML IVCONT (03:55)
[2022-12-21] MEDS: oxyCODONE HCl Immed Release 5 MG TABLET 10 MG PO ×3 (04:36→13:16)
--- NOTE | 2022-12-21 07:40 | PM.DS ---
DS: Providers Provider Date of Service: 12/21/22 Date of admission: 12/20/22 11:50 Primary care physician: Spike Araujo MD DS: Diagnosis Discharge Diagnosis (1) Back pain: Status: Acute DS: Summary Hospital Course Hospital Course: This is a 67-year-old female who has a history of known low back pain with degenerative disc disease who presented to the office for evaluation for surgery. The patient had failed conservative treatment was admitted for an elective L4-5 minimally invasive trans Kambin lumbar fusion. The patient underwent her procedure without complication, was brought to the PACU where she recovered from anesthesia then subsequently brought up to the [address] [place] [address] where she began her recovery. The patient's diet was advanced, she was lot to get out of bed as tolerated. Her 1st postoperative night was unremarkable. She did have back pain as we would expect, but no radicular pain, tingling numbness or weakness down her legs. The patient was allowed to void on her own, nursing reports that she had no issues. She was started on postoperative pain protocol with IV Toradol, IV Tylenol as well as oxycodone. She seemed to tolerate this regimen okay, she did get up slowly working with physical therapy and it was felt she would need rehab. She has been to [facility] in the past and requested to be there for her recovery. She was otherwise doing okay, tolerating a diet, voiding and pain was under reasonably good control that we felt it would be okay to discharge her to rehab. She was cover with insulin sliding scale while she was here in the hospital and her home diabetic medications were continued as well. She will need less than 30 days stay at rehab anticipated. Past medical history: Hypertension, high cholesterol, vitamin-D deficiency, diabetes, obesity, GERD, uterine fibroid, microalbuminuria, urinary incontinence, tremor, neuropathy of both feet, cervical stenosis, status post anterior cervical fusion, plantar fasciitis Allergies: Sulfa antibiotics Social history: She does not smoke Physical exam upon discharge: Patient is awake alert oriented, no acute distress, she has full strength of bilateral lower extremities with normal sensation, back dressings have slight amount of drainage on them but no signs of hematoma. Abdomen is obese, nondistended nontender. Patient was given discharge instructions activity guidelines, she does not need a brace, she can be activity as tolerated as long she is not doing bending lifting and twisting. Please see the discharge instruction activity guidelines for any more specific instructions, the patient will be discharged with a prescription for oxycodone. Time Spent with Patient Time attestation: Total time managing care of this patient today ____ minutes. Discharge coordination time: Less than 30 minutes Quality: Safe Use of Opioids Does Pt have an Active Cancer Diagnosis on the Problem List?: No Quality: Stroke Does the patient have a stroke diagnosis?: No Physical Exam Vital Signs: Vital Signs: Last Vital Signs Temp 97.1 F 12/21/22 03:15 Pulse 81 12/21/22 03:15 Resp 14 12/21/22 03:15 BP 123/61 12/21/22 03:15 Pulse Ox 98 12/21/22 03:15 O2 Del Method Nasal Cannula 12/21/22 03:15 O2 Flow Rate 3 12/21/22 03:15 BMI result Body Mass Index 37.4 DS: Data Data Completed and Pending Labs on day of discharge: Laboratory Results - last 24 hr 12/20/22 12/20/22 11:17 16:22 POC Glucose 234 H 242 H Discharge Plan Discharge Anticipated Discharge Date/Time: 12/21/22 07:49 Patient Disposition: Xfer Inpatient Rehab Fac Discharge Diagnosis: lumbar degenerative disk disease Referrals: [facility] [Outside] - 1 Week ([phone]) Spike Araujo MD [Primary Care Provider] - Discharge Medications: New oxycodone 5 mg Tablet 10 mg PO Q4H PRN (Reason: Pain, Severe (Pain Scale 7-10)) Qty: 30 0RF Rx Instructions: Partial Fill upon patient request. Continued lisinopril 20 mg tablet 20 mg PO QAM clonazepam 1 mg tablet 1.5 mg PO BID PRN (Reason: Anxiety) cyanocobalamin (vitamin B-12) 1,000 mcg tablet 1,000 mcg PO DAILY acetaminophen 500 mg tablet 500 mg PO Q8H PRN (Reason: pain) pantoprazole 40 mg tablet,delayed release (DR/EC) 40 mg PO DAILY trazodone 150 mg tablet 150 mg PO BEDTIME PRN (Reason: Insomnia) lovastatin 20 mg tablet 20 mg PO BEDTIME albuterol sulfate 90 mcg/actuation HFA aerosol inhaler 2 puff inhalation Q6H PRN (Reason: wheezing) hydroxyzine HCl 10 mg tablet 10 mg PO TID fluticasone propionate 50 mcg/actuation spray,suspension 2 spray intranasal DAILY fluticasone propionate [Flovent HFA] 110 mcg/actuation HFA aerosol inhaler 1 puff INHALATION BID insulin lispro [Humalog KwikPen Insulin] 100 unit/mL insulin pen SUBCUT insulin glargine [Lantus Solostar U-100 Insulin] 100 unit/mL (3 mL) insulin pen 50 unit subcut DAILY duloxetine 40 mg capsule,delayed release(DR/EC) 40 mg PO DAILY Gemtesa 75 mg tablet 75 mg PO DAILY Discontinued acetaminophen-codeine 300-30 mg tablet 1 tab Q6H PRN (Reason: Pain) lidocaine 5 % adhesive patch,medicated 1 patch topical DAILY PRN (Reason: Pain) Discharge Orders: Discharge Order (Routine); Ordered 12/21/22 Ordered By: Maikol Masterson Diet: Diabetic diet Activity on Discharge: As tolerated Stand Alone Forms: Patient Portal Discharge page Activity Restrictions/Additional Instructions: After your spinal surgery we ask you to observe the following restrictions/guidelines: Activity: It is normal to feel some discomfort as you increase your activity, but that will improve with time. We ask you avoid heavy lifting or acitivities that cause pain. As a general rule, 8lbs is a safe limit for lifting right after surgery. Walk as much as you feel comfortable but not to exhaustion. You will feel extra tired the first few days after surgery. Stay well hydrated. It is OK to walk up and down stairs You may return to driving when you are off narcotics (such as vicodin, oxycodone, dilaudid, etc), and you are back to normal functional capacity. If you have any concerns please check with office before driving. Return to work is specific to each patient and each surgery, so please speak with your doctor/PA at first follow up. Please bring paperwork such as FMLA at that time if you need it filled out. Medications: We will give you a short supply of narcotics after surgery (usually one weeks worth). If you need more please call the office but do not use more than prescribed. You will need to give our office 48 hours notice if you need narcotics refilled and we do not fill narcotics on weekends or evenings. If you are on a narcotic, it is a good idea to take a stool softener such as colace or senna to avoid constipation If you take blood thinner such as aspirin, Plavix, Coumadin, Effient, Eliquis etc for conditions such as Afib, DVT, Pulmonary embolus, coronary disease, stents etc please speak with your surgeon about specific details as to when you can resume these medications. You can resume NSAIDs on post op day 1 (eg: Motrin, Naproxen, etc). Follow up: Please call the office, , after surgery to arrange a 3 week follow up for wound check. Wound Care: You may remove your dressing on the first day after surgery. You may leave open to air. Please do not remove the steri strips underneath. they will fall off on their own in one week. IT IS NORMAL FOR THE WOUND TO OOZE OR BE BLOODY FOR A FEW DAYS AFTER SURGERY. IF THIS HAPPENS JUST PLACE NEW DRESSING OVER IT TO AVOID STAINING CLOTHES. You may shower on post op day # 1 We ask that you do not let the water soak the wound. If it does get wet, just towel dry lightly. Please do not scrub your incision or place any type of chemical/ointment on the wound. No tub baths, pools or jacuzzis for one month. If you have any leaking or redness from your wound, or fevers, please call office Care Plan Goals: Return to functional status Health Concerns: None Plan of Treatment: Rehabilitate Assessment: Rehabilitate and returned home Discharge Date/Time: 12/22/22 12:19
[2022-12-21] MEDS: Insulin Lispro 100 UNIT/ML 3 ML VIAL SUBCUT ×4 (07:44→20:46)
[2022-12-21] MEDS: Docusate Sodium 100 MG CAPSULE PO ×2 (07:44→19:27)
[2022-12-21 07:46] VITALS: BP 137/63; PULSE 72; RESP 16; TEMP 36.7; O2SAT 92
[2022-12-21 09:39] VITALS: O2SAT 89
--- NOTE | 2022-12-21 10:32 | HO.NEURO.PN ---
Neurosurgery Operative Note Date of Service: 12/21/22 Narrative: Postop for day 1. L4-5 minimally invasive oblique lateral lumbar trans Kambin interbody fusion patient reports that she is having back pain, denies any pain down the legs. Nursing staff reports that she has been voiding without problems. She has not eaten yet, has been taking liquids without any problems. Afebrile, vital signs stable, oxygen saturation slightly low this morning, suspect because she has been lying in bed all night physical exam: Patient seen at bedside with Dr. Dooley, she has full strength of bilateral lower extremities, back dressings are clean a nd dr becker small amount of staining. Impression: Postop day 1. L4-5 minimally invasive oblique lateral lumbar trans Kambin interbody fusion, clinically having back pain as we would expect, she is on postop for pain protocols with IV Tylenol, IV Toradol, oxycodone and Dilaudid as needed. We reinforced to the patient the need to get up out of bed mobilize around today. The patient will have her diet advanced, will see PT, and if she can go to rehab today she can be discharged. Patient seen at bedside with Dr. Dooley.
--- NOTE | 2022-12-21 12:33 | MHC.CM.PN ---
Addendum entered by Rosalva Andrews RN 12/21/22 13:09: [facility] IS GOING FOR AUTH TO ADMIT AND THEY HAVE A PRIVATE ROOM PATIENT AWARE Original Note: PATIENT ASKS FOR A REFERRAL TO [facility], [facility]AC[facility] PATIENT ALSO ASKING FOR A PRIVATE ROOM IF BED IS OFFERED, RN STATES PATIENT CAN GO TODAY CASE MANAGEMENT FOLLOWING. IMM 12/21 INCHART
--- NOTE | 2022-12-21 13:30 | P.DS_ITS ---
DS: Providers Provider Date of Service: 12/20/22 Date of admission: 12/20/22 11:50 Date of discharge: 12/21/22 Primary care physician: Spike Araujo MD Admitting clinician: Pedro Dooley Attending physician on discharge: Pedro Dooley DS: Diagnosis Discharge Diagnosis (1) Back pain: Status: Acute DS: Summary Hospital Course Hospital Course: This is a 67-year-old female who has a history of known low back pain with degenerative disc disease who presented to the office for evaluation for surgery. The patient had failed conservative treatment was admitted for an elective L4-5 minimally invasive trans Kambin lumbar fusion. The patient underwent her procedure without complication, was brought to the PACU where she recovered from anesthesia then subsequently brought up to the [address] [place] [address] where she began her recovery. The patient's diet was advanced, she was lot to get out of bed as tolerated. Her 1st postoperative night was unremarkable. She did have back pain as we would expect, but no radicular pain, tingling numbness or weakness down her legs. The patient was allowed to void on her own, nursing reports that she had no issues. She was started on postoperative pain protocol with IV Toradol, IV Tylenol as well as oxycodone. She seemed to tolerate this regimen okay, she did get up slowly working with physical therapy and it was felt she would need rehab. She has been to [facility] in the past and requested to be there for her recovery. She was otherwise doing okay, tolerating a diet, voiding and pain was under reasonably good control that we felt it would be okay to discharge her to rehab. She was cover with insulin sliding scale while she was here in the hospital and her home diabetic medications were continued as well. She will need less than 30 days stay at rehab anticipated. Past medical history: Hypertension, high cholesterol, vitamin-D deficiency, diabetes, obesity, GERD, uterine fibroid, microalbuminuria, urinary incontin ence, tremor, neuropathy of both feet, cervical stenosis, status post anterior cervical fusion, plantar fasciitis Allergies: Sulfa antibiotics Social history: She does not smoke Physical exam upon discharge: Patient is awake alert oriented, no acute distress, she has full strength of bilateral lower extremities with normal sensation, back dressings have slight amount of drainage on them but no signs of hematoma. Abdomen is obese, nondistended nontender. Patient was given discharge instructions activity guidelines, she does not need a brace, she can be activity as tolerated as long she is not doing bending lifting and twisting. Please see the discharge instruction activity guidelines for any more specific instructions, the patient will be discharged with a prescription for oxycodone. Status at Discharge Functional status at discharge: uses cane/walker Time Spent with Patient Time attestation: Total time managing care of this patient today ____ minutes. Discharge coordination time: Less than 30 minutes Quality: Safe Use of Opioids Does Pt have an Active Cancer Diagnosis on the Problem List?: No Quality: Stroke Does the patient have a stroke diagnosis?: No Physical Exam Vital Signs: Vital Signs: Last Vital Signs Temp 98.1 F 12/21/22 07:46 Pulse 72 12/21/22 07:46 Resp 16 12/21/22 07:46 BP 137/63 12/21/22 07:46 Pulse Ox 89 L 12/21/22 09:39 O2 Del Method Nasal Cannula 12/21/22 07:46 O2 Flow Rate 1.5 12/21/22 07:46 BMI result Body Mass Index 37.4 DS: Data Data Completed and Pending Labs on day of discharge: Laboratory Results - last 24 hr 12/20/22 16:22 POC Glucose 242 H Discharge Plan Discharge Anticipated Discharge Date/Time: 12/21/22 07:49 Patient Disposition: Xfer Inpatient Rehab Fac Discharge Diagnosis: lumbar degenerative disk disease Referrals: Spike Araujo MD [Primary Care Provider] - Discharge Medications: New oxycodone 5 mg Tablet 10 mg PO Q4H PRN (Reason: Pain, Severe (Pain Scale 7-10)) Qty: 30 0RF Rx Instructions: Partial Fill upon patient request. Continued lisinopril 20 mg tablet 20 mg PO QAM clonazepam 1 mg tablet 1.5 mg PO BID PRN (Reason: Anxiety) cyanocobalamin (vitamin B-12) 1,000 mcg tablet 1,000 mcg PO DAILY acetaminophen 500 mg tablet 500 mg PO Q8H PRN (Reason: pain) pantoprazole 40 mg tablet,delayed release (DR/EC) 40 mg PO DAILY trazodone 150 mg tablet 150 mg PO BEDTIME PRN (Reason: Insomnia) lovastatin 20 mg tablet 20 mg PO BEDTIME albuterol sulfate 90 mcg/actuation HFA aerosol inhaler 2 puff inhalation Q6H PRN (Reason: wheezing) hydroxyzine HCl 10 mg tablet 10 mg PO TID fluticasone propionate 50 mcg/actuation spray,suspension 2 spray intranasal DAILY fluticasone propionate [Flovent HFA] 110 mcg/actuation HFA aerosol inhaler 1 puff INHALATION BID insulin lispro [Humalog KwikPen Insulin] 100 unit/mL insulin pen SUBCUT insulin glargine [Lantus Solostar U-100 Insulin] 100 unit/mL (3 mL) insulin pen 50 unit subcut DAILY duloxetine 40 mg capsule,delayed release(DR/EC) 40 mg PO DAILY Gemtesa 75 mg tablet 75 mg PO DAILY Discontinued acetaminophen-codeine 300-30 mg tablet 1 tab Q6H PRN (Reason: Pain) lidocaine 5 % adhesive patch,medicated 1 patch topical DAILY PRN (Reason: Pain) Discharge Orders: Discharge Order (Routine); Ordered 12/21/22 Ordered By: Maikol Masterson Diet: Diabetic diet Activity on Discharge: As tolerated Stand Alone Forms: Patient Portal Discharge page Activity Restrictions/Additional Instructions: After your spinal surgery we ask you to observe the following restrictions/guidelines: Activity: It is normal to feel some discomfort as you increase your activity, but that will improve with time. We ask you avoid heavy lifting or acitivities that cause pain. As a general rule, 8lbs is a safe limit for lifting right after surgery. Walk as much as you feel comfortable but not to exhaustion. You will feel extra tired the first few days after surgery. Stay well hydrated. It is OK to walk up and down stairs You may return to driving when you are off narcotics (such as vicodin, oxycodone, dilaudid, etc), and you are back to normal functional capacity. If you have any concerns please check with office before driving. Return to work is specific to each patient and each surgery, so please speak with your doctor/PA at first follow up. Please bring paperwork such as FMLA at that time if you need it filled out. Medications: We will give you a short supply of narcotics after surgery (usually one weeks worth). If you need more please call the office but do not use more than prescribed. You will need to give our office 48 hours notice if you need narcotics refilled and we do not fill narcotics on weekends or evenings. If you are on a narcotic, it is a good idea to take a stool softener such as colace or senna to avoid constipation If you take blood thinner such as aspirin, Plavix, Coumadin, Effient, Eliquis etc for conditions such as Afib, DVT, Pulmonary embolus, coronary disease, stents etc please speak with your surgeon about specific details as to when you can resume these medications. You can resume NSAIDs on post op day 1 (eg: Motrin, Naproxen, etc). Follow up: Please call the office, , after surgery to arrange a 3 week follow up for wound check. Wound Care: You may remove your dressing on the first day after surgery. You may leave open to air. Please do not remove the steri strips underneath. they will fall off on their own in one week. IT IS NORMAL FOR THE WOUND TO OOZE OR BE BLOODY FOR A FEW DAYS AFTER SURGERY. IF THIS HAPPENS JUST PLACE NEW DRESSING OVER IT TO AVOID STAINING CLOTHES. You may shower on post op day # 1 We ask that you do not let the water soak the wound. If it does get wet, just towel dry lightly. Please do not scrub your incision or place any type of chemical/ointment on the wound. No tub baths, pools or jacuzzis for one month. If you have any leaking or redness from your wound, or fevers, please call office Care Plan Goals: Return to functional status Health Concerns: None Plan of Treatment: Rehabilitate Assessment: Rehabilitate and returned home
[2022-12-21 13:42] VITALS: O2SAT 91
--- NOTE | 2022-12-21 14:00 | HO.POSTANES ---
Post Anesthesia Evaluation Post Anesthesia Evaluation Vital Signs: Vital Signs Temp Pulse Resp BP Pulse Ox O2 Del Method O2 Flow Rate 12/21/22 13:42 91 L Room Air 12/21/22 09:39 89 L 12/21/22 07:46 98.1 F 72 16 137/63 92 Nasal Cannula 1.5 12/21/22 03:15 97.1 F 81 14 123/61 98 Nasal Cannula 3 Anesthesia: General Endotracheal-GETA Mental Status: Awake Pain Control: Satisfactory Nausea/Vomiting: None Hydration: Adequate Anesthesia-Related Issues: No Anes. Related Issues
[2022-12-21 14:24] LABS: COVID-19 Test Negative (Negative); IDNOW Serial# 08D9AD1C
[2022-12-21] MEDS: HYDROmorphone HCl 1 MG/ML SYRINGE IVPUSH ×2 (14:58→19:26)
--- NOTE | 2022-12-21 15:39 | MHC.CM.PN ---
PATIENT TO DC TO [facility] ON THURSDAY 01/11 RN AND PATIENT AWARE RN INFORMED SURGICAL PA VIA TIGER TEXT
[2022-12-21 16:00] VITALS: BP 134/60; PULSE 91; RESP 20; TEMP 36.4; O2SAT 90
[2022-12-21 19:04] VITALS: BMI 37.0
[2022-12-21 19:49] VITALS: BP 142/66; PULSE 88; RESP 22; TEMP 36.9; O2SAT 91
[2022-12-21 20:14] LABS: Glucose, Whole Blood 222 mg/dL (60-115)
[2022-12-22] MEDS: HYDROmorphone HCl 1 MG/ML SYRINGE IVPUSH ×2 (00:14→06:09)
[2022-12-22] MEDS: oxyCODONE HCl Immed Release 5 MG TABLET PO (02:51)
[2022-12-22 03:01] VITALS: BP 168/77; PULSE 95; RESP 18; TEMP 37.3; O2SAT 93
[2022-12-22] MEDS: Ketorolac Tromethamine 15 MG/ML VIAL IVPUSH ×2 (04:01→09:52)
[2022-12-22 07:21] VITALS: BP 165/78; PULSE 95; RESP 18; TEMP 36.3; O2SAT 95
[2022-12-22 07:34] LABS: Glucose, Whole Blood 170 mg/dL (60-115)
[2022-12-22] MEDS: Insulin Lispro 100 UNIT/ML 3 ML VIAL SUBCUT ×2 (07:59→11:31)
[2022-12-22] MEDS: Docusate Sodium 100 MG CAPSULE PO (08:00)
[2022-12-22] MEDS: oxyCODONE HCl Immed Release 5 MG TABLET 10 MG PO ×2 (09:07→12:15)
[2022-12-22] MEDS: lisinopriL 20 MG TABLET PO (09:52)
[2022-12-22] MEDS: Omeprazole 40 MG CAPSULE.DR PO (09:52)
[2022-12-22] MEDS: DULoxetine HCl 20 MG CAPSULE.DR 40 MG PO (09:52)
--- NOTE | 2022-12-22 10:55 | MHC.CM.PN ---
PATIENT LIVES ALONE. SON, AILYN IS HCP COPY REQUESTED. NO DME OR VNA SERVICES HE HOPES TO DC HOME WITH NO NEED FOR SERVICES CASE MANAGEMENT FOLLOWING FOR DC PLANS PATIENT STILL WITH SPASM AND PAIN. IMM 5 IN CHART
== END 2022-12-22 12:19 | DRG 460 ==
LOC: HO.SSSA 12:24 → HO.S3 14:11
PROVIDERS: Nurse Practitioner; Admitting Provider Physician Assistant; PCP Pediatrics; Visit Provider Neurological Surgery
PROC: 0SG00A0 Fusion of Lumbar Vertebral Joint with Interbody Fusion Device, Anterior Approach, Anterior Column, Open Approach (ICD-10-PCS; principal; 2022-12-20 07:30)
DX: M51.36 Other intervertebral disc degeneration, lumbar region (principal); G47.33 Obstructive sleep apnea (adult) (pediatric); Z20.822 Contact with and (suspected) exposure to COVID-19; Z90.5 Acquired absence of kidney; Z86.73 Personal history of transient ischemic attack (TIA), and cerebral infarction without residual deficits; Z88.2 Allergy status to sulfonamides; Z79.4 Long term (current) use of insulin; Z79.51 Long term (current) use of inhaled steroids; Z79.899 Other long term (current) drug therapy
CPT/HCPCS: 36415; 80048; 82947; 83036; 85027; 87635; 93005; 97116; 97162; 97530; C1713; C1769; C1889; J0131; J0330; J0690; J1100; J1170; J1885; J2250; J2405; J3010; L8699

== ENCOUNTER 2022-12-25 21:20 | Emergency (ER) | payer OTHER, SELFPAY ==
--- NOTE | ~2022-12-25 | CT_ITS ---
EXAMINATION: CT LUMBAR SPINE CLINICAL INFORMATION: Status post L4-L5 discectomy/lumbar fusion 12/20/2022, severe pain COMPARISON: None available. TECHNIQUE: 85 mL Omnipaque 350 intravenous contrast was utilized. Multidetector helical imaging was performed through the lumbar spine. Coronal and sagittal reformatted images were created. This CT examination was performed using dose optimization techniques as appropriate, variously including the following: *Automated exposure control *Adjustment of mA and/or kV according to patient size (this includes techniques or standardized protocols for targeted exams where dose is matched to indication/reason for exam; i.e. extremities or head) *Use of iterative reconstruction technique DLP: 748 mGy-cm FINDINGS: Postoperative changes from L4-L5 fusion with bilateral pedicle screws, interconnecting rods, and intervertebral disc spacer device. There is limited evaluation of the soft tissues at the surgical site due to hardware from streak artifact; no definite fluid collection or significant hematoma is seen in this setting. There is anatomic alignment of the lumbar vertebral bodies and posterior elements. Vertebral body heights are maintained. There is severe disc space narrowing with surrounding endplate osteophytes at L5-S1. No acute fracture is seen. CT/CT lumbar spine w IV con IMPRESSION: Postoperative changes from L4-L5 fusion. No appreciable acute findings, though assessment of soft tissues is limited in some areas due to artifact. If clinically warranted, this may be more fully assessed with pre and postcontrast MRI.
[2022-12-25 21:32] VITALS: BP 178/71; BP 180/100; PULSE 75; PULSE 90; RESP 15; TEMP 36.6; O2SAT 96; O2SAT 97
[2022-12-25 22:07] VITALS: BP 170/69; PULSE 70; TEMP 36.6; O2SAT 95
--- NOTE | 2022-12-25 22:10 | PC.NURSE ---
[facility]. Had spinal fusion done on 12/20/22 and was discharge to rehab on 12/22/2022. Ever since then patient has not drank fluids and has been in intractable pain. She reports that the pain is 10/10 on both sides of her spine. She is unable to get comfortable and has been unable to walk around due to the pain
[2022-12-25 22:35] LABS: Basophils Percent Auto 0.4 % (0-2); Eosinophils Absolute Auto 0.4 X10*3/uL (0.0-0.4); Eosinophils Percent Auto 4.8 % (0-4); Hematocrit 38.4 % (37.0-47.0); Hemoglobin 12.9 g/dl (12.0-16.0); Imm Gran Abs Auto 0.04 X10*3/uL (0.00-0.03); Imm Gran Pct Auto 0.4 % (0.0-0.4); Lymphocytes Absolute Auto 2.6 X10*3/uL (1.2-4.9); MANUAL DIFF FLAG NO; Mean Corpuscular HGB Conc 33.6 g/dl (31.0-35.0); Mean Corpuscular Hemoglobin 26.9 pg (27.0-33.0); Mean Platelet Volume 9.3 fL (9.4-12.3); Monocytes Absolute Auto 0.7 X10*3/uL (0.1-1.2); Monocytes Percent Auto 7.2 % (2-11); Neutrophils Absolute Auto 5.5 x10*3/uL (2.0-8.3); Neutrophils Percent Auto 59.2 % (45-73); Platelet Count 284 X10*3/uL (160-400); Red Cell Distribution Width 13.9 % (11.0-16.0); White Blood Count 9.3 X10*3/uL (4.8-10.8)
--- NOTE | 2022-12-25 22:35 | PC.NURSE ---
IV placed in right hand, labs drawn, no MD sign up at this time. Pain is 10/10 excrutiating per patient
--- NOTE | 2022-12-25 22:39 | ED_ITS ---
HPI - General Adult General Chief complaint: General Medical Stated complaint: BACK PAIN S/P RECENT SURGERY FROM REHAB PER EMS Time Seen by Provider: 12/25/22 22:38 Source: patient Mode of arrival: EMS Limitations: no limitations History of Present Illness HPI narrative: 67-year-old female who presents emergency department for evaluation of severe back pain . Patient has a history of chronic back pain secondary to lumbar degenerative disc disease L4-L5 with chronic back pain. The patient surgery on 12/20/[address] Tyrese Dooley. Following was obtained from the operative note: Preoperative Diagnosis: (1) lumbar degenerative disc disease L4-5 with chronic back pain (2) Same Procedure: 1) L4-5oblique lateral lumbar interbody fusion with discectomy, preparation of the endplates and placement of a bullet cage packed with allograft, anterior to the transverse process and modified prone position, with intraoperative biplanar fluoroscopy imaging and electrophysiological monitoring 2) L4-5posterior minimally invasive pedicle screw placement and posterior lateral instrumentation and fusion with electrophysiological monitoring The patient was discharged to [facility] on 12/22/2022. She states that when she initially got there she did not have any pain medications and her pain was severe. She states she has been receiving oxycodone and a muscle relaxant. She states that after seizures medications she gets pain relief for approximately 1 hour. She states she currently has severe pain in her lower back and she feels like she is lying on rocks. She states she also has a cramping sensation in both of her legs. She denies any weakness of her lower extremities. She does have diabetic neuropathy and she states that the numbness in her legs is unchanged. She does have bladder incontinence which is chronic but no stool incontinence. She reports that she had a fever at the nursing facility but I have no documentation from the nursing facility his port this. She also reports that she had drainage from 1 of the and decisions. She states that her pain is currently 10/10. Related Data Home Medications Medication Instructions Recorded Confirmed acetaminophen 500 mg tablet 500 mg PO Q8H PRN pain 12/09/22 12/26/22 albuterol sulfate 90 mcg/actuation 2 puff inhalation Q6H PRN wheezing 12/09/22 12/26/22 aerosol inhaler clonazepam 1 mg tablet 1.5 mg PO BID PRN Anxiety 12/09/22 12/26/22 cyanocobalamin (vitamin B-12) 1,000 mcg PO DAILY 12/09/22 12/26/22 1,000 mcg tablet duloxetine 40 mg capsule,delayed 40 mg PO DAILY 12/09/22 12/26/22 release fluticasone propionate 110 1 puff inhalation BID 12/09/22 12/26/22 mcg/actuation HFA aerosol inhaler (Flovent HFA) fluticasone propionate 50 2 spray intranasal DAILY 12/09/22 12/26/22 mcg/actuation nasal spray,suspension hydroxyzine HCl 10 mg tablet 10 mg PO TID 12/09/22 12/26/22 insulin glargine 100 unit/mL (3 50 unit subcut DAILY 12/09/22 12/26/22 mL) subcutaneous pen (Lantus Solostar U-100 Insulin) insulin lispro 100 unit/mL subcut 12/09/22 subcutaneous pen (Humalog KwikPen (U-100) Insulin) lisinopril 20 mg tablet 20 mg PO QAM 12/09/22 12/09/22 lovastatin 20 mg tablet 20 mg PO BEDTIME 12/09/22 12/26/22 pantoprazole 40 mg tablet,delayed 40 mg PO DAILY 12/09/22 12/26/22 release trazodone 150 mg tablet 150 mg PO BEDTIME PRN Insomnia 12/09/22 12/26/22 vibegron 75 mg tablet (Gemtesa) 75 mg PO DAILY 12/09/22 12/26/22 docusate sodium 100 mg tablet 100 mg PO BID 12/26/22 12/26/22 oxycodone 15 mg tablet,extended 15 mg PO BEDTIME 12/26/22 12/26/22 release,12 hr sennosides 8.6 mg capsule 17.2 mg PO BID 12/26/22 12/26/22 tizanidine 4 mg capsule 4 mg PO Q8H PRN Spasms 12/26/22 12/26/22 Previous Rx's Medication Instructions Recorded oxycodone 5 mg tablet 10 mg PO Q4H PRN Pain, Severe 12/21/22 (Pain Scale 7-10) #30 tabs Allergies Allergy/AdvReac Type Severity Reaction Status Date / Time Sulfa (Sulfonamide Allergy Intermediate Hives Verified 12/09/22 12:04 Antibiotics) Review of Systems Review of Systems: Yes all other systems are reviewed and are negative [facility] Past Medical History Medical History Anxiety Asthma Conversion disorder Depression Diabetes Elevated cholesterol GERD (gastroesophageal reflux disease) HTN (hypertension) Hx of renal calculi Hx TIA/stroke w/o resid Insomnia Lower back pain XUAN (obstructive sleep apnea) Overactive bladder Shoulder pain, right Single kidney Thyroid condition Use of cane as ambulatory aid Surgical History History of bilateral knee replacement Hx laparoscopic cholecystectomy Hx of bilateral cataract extraction Hx of colonoscopy Hx of cystoscopy Hx of fusion of cervical spine Hx of tonsillectomy S/P surgery on nasal septum Social History Social History Household Members: Family Household Members Other:: granddaughter Housing: House Are you a primary manager medicare to a significant other at home: No Do you presently have visiting nurse or other home services: Yes ([employer]) Alcohol intake: current Alcohol intake frequency: holidays/special occasions only Patient Tobacco Use Status: Never used Tobacco Smoked in Last 30 Days: No Use of substances other than those prescribed or required for medical reasons: No Advance Directives: No Advance Directives Information Provided: No service: No Current occupational status: employed Physical Exam ED Vital Signs: Vital Signs - 24 hr 12/25/22 21:32 12/25/22 22:07 12/26/22 00:02 Temperature 97.8 F 98 F 98.3 F Pulse Rate 75 70 61 Respiratory Rate 15 16 Blood Pressure 178/71 H 170/69 H 148/67 H Pulse Oximetry 96 95 95 Oxygen Delivery Method Room Air Room Air 12/26/22 01:26 Temperature 97.5 F Pulse Rate 75 Respiratory Rate 16 Blood Pressure 136/58 L Pulse Oximetry 96 Oxygen Delivery Method BMI result Body Mass Index 0.0 Const Other: Awake, alert, female patient, appears to be in distress secondary to her back pain, she is crying, her jaw a shake which she states is usual when she has pain, she answers questions appropriately HENMT Head: Yes normal to inspection, Yes normocephalic and Yes atraumatic Ears: external ears normal General nose exam: Normal external nose present Face and sinus: Yes normal facial exam Mouth: Normal oral and palatal mucosa present Throat: Yes posterior oropharynx normal Eyes General: appearance normal, both eyes and all related structures Neck Neck: Yes normal visual inspection, Yes no lymphadenopathy, Yes trachea midline and Yes supple Chest Chest palpation & inspection: normal inspection of the chest and normal palpati on of entire chest wall Resp Effort & Inspection: normal respiratory effort and able to speak in complete sentences Auscultation: clear to auscultation bilaterally Cardio Rate: regular rate Rhythm: regular rhythm Heart sounds: S1 normal heart sound present, S2 normal heart sound present and no murmurs GI Inspection: Yes normal to inspection Palpation (GI): Soft to palpation, nontender and no guarding Auscultation: normal bowel sounds Back/Spine/Pelvis Other: The patient has ecchymosis to her back which is consistent with her surgery, the incision sites appear to be intact with no purulent drainage, erythema or increased warmth. She is tender over the ecchymotic areas of her back she has negative straight leg raises bilaterally. There is no increased warmth to the skin of her back or erythema. Skin General skin exam: no rashes or lesions noted Neuro Other: Cranial nerves 2-12 intact, the patient's strength in her lower extremities is normal, she has normal light touch symmetric we. Extrem Other: There is no significant swelling of her lower extremities, she has no tenderness palpation of her legs, she has bilateral the knee scars consistent with total kn ee replacements, extremities are neurovascular intact Medications Administered Generic Name Dose Route Start Last Admin Trade Name Freq PRN Reason Stop Dose Admin Acetaminophen 650 mg 12/26/22 03:37 12/26/22 04:36 Acetaminophen 325 Mg Tablet PO 650 mg Q4H PRN Administration Pain, Moderate(Pain Scale 4-6) Morphine Sulfate 4 mg 12/26/22 03:37 12/26/22 04:36 Morphine Sulfate 4 Mg/Ml Cartridge IVPUSH 4 mg Q4H PRN Administration Pain, Severe (Pain Scale 7-10) Protocol Discontinued Medications Generic Name Dose Route Start Last Admin Trade Name Freq PRN Reason Stop Dose Admin Cyclobenzaprine HCl 10 mg 12/26/22 04:26 12/26/22 04:36 Cyclobenzaprine Hcl 10 Mg Tablet PO 12/26/22 04:27 10 mg ONCE STA Administration Sodium Chloride 1,000 mls @ 999 mls/hr 12/26/22 02:18 12/26/22 04:00 Ns IV 12/26/22 03:18 Infused .Q1H1M STA Infusion Iohexol 85 ml 12/25/22 23:38 12/25/22 23:38 Iohexol 350 Mg/Ml 100 Ml Infus..Btl IV 12/25/22 23:39 85 ml ONCE ONE Administration Morphine Sulfate 4 mg 12/25/22 23:00 12/25/22 23:06 Morphine Sulfate 4 Mg/Ml Cartridge IVPUSH 12/25/22 23:01 4 mg ONCE STA Administration Protocol Morphine Sulfate 4 mg 12/26/22 00:19 12/26/22 00:36 Morphine Sulfate 4 Mg/Ml Cartridge IVPUSH 12/26/22 00:20 4 mg ONCE STA Administration Protocol Morphine Sulfate 4 mg 12/26/22 02:18 12/26/22 02:41 Morphine Sulfate 4 Mg/Ml Cartridge IVPUSH 12/26/22 02:19 4 mg ONCE STA Administration Protocol Ondansetron HCl 4 mg 12/25/22 23:00 12/25/22 23:06 Ondansetron Hcl 4 Mg/2 Ml Vial IVPUSH 12/25/22 23:01 4 mg ONCE ONE Administration Medical Decision Making Medical Decision Making MDM Narrative: 67-year-old female with a history of diabetes mellitus, hypertension, hyperlipidemia, GERD, chronic lower back pain secondary to degenerative joint disease who had an L4-L5 diskectomy with fusion on 12/20/2022. She was discharged on 12/22/2022 at has been in a rehab facility since then. She states that her pain is been severe and crossed her lower back. She has been receiving oxycodone and a muscle relaxant with no relief for pain. She reported that she may have had a fever and drainage from the wound site. Vital signs here revealed elevated blood pressure 178/71 otherwise unremarkable. Evaluation of the patient's back revealed mainly ecchymosis with tenderness. Her neurologic exam was nonfocal. I ordered a laboratory evaluation to include CBC, BMP, liver panel, lipase, lactic acid, CRP, ESR, urinalysis, blood cultures x2. I will obtain a CT scan of the lumbar spine with IV contrast to evaluate for possible abscess versus hematoma. I will discuss the patient's presentation with the spine surgeon who performed the procedure, Dr. Dooley. I did order morphine 4 mg IV and Zofran 4 mg IV for her pain. Will continue to try to control her pain with morphine. 0333: My interpretation of the patient's laboratory evaluation is as follows: CBC was normal. AST and ALT elevated 32 and 74. Alk-phos elevated 133. ESR and CRP were elevated 34 and 7.06-this is most likely secondary to postoperative inflammation. CT scan of the patient's lumbar spine did not reveal any clear cause for the patient's pain. At this time I do not suspect infectious process. Patient required 2 more doses of morphine 4 mg IV and she states that her pain is now at a tolerable level. Patient is concerned about going back to the care facility without a pain management plan. I did attempt to get a hold of the surgeon Dr. Dooley but I was told by the secretary board of commissioners that his group does not take call and there was no one on-call for him. I did discuss admission with the covering hospitalist, Dr. Dotson who requests that the patient be kept in the emergency department on observation until the morning when the morning hospitalist team can investigate whether the patient can be admitted to the surgical service or whether the patient needs be admitted to the hospitalist group. I ordered medical reconciliation and morphine 4 mg IV every 4 hours as needed for pain. Patient will be started in physician observation 0726: End physician observation. I did talk to the physician sales assistants and salespersons Maikol Masterson who knows the patient well pain. He states the patient did have difficulty with pain management with her cervical surgery as well. He felt that the patient would not get adequate physical therapy here and that the patient needs rehab to get up and start moving which will help with her recovery. I did discuss this with the patient the patient is feeling better after our treatment and is willing to go back to the nursing facility. She is concerned that she may not get enough pain medication at the nursing facility but I did order that she needs to discuss this with her treating provider. Lab Data 12/25/22 22:28 12/25/22 22:28 Labs: Lab Results 12/25/22 12/25/22 12/25/22 Range/Units 22:28 22:28 23:57 WBC 9.3 (4.8-10.8) X10*3/uL RBC 4.80 (4.20-5.50) X10*6/uL Hgb 12.9 (12.0-16.0) g/dl Hct 38.4 (37.0-47.0) % MCV 80.0 (80.0-98.0) fL MCH 26.9 L (27.0-33.0) pg MCHC 33.6 (31.0-35.0) g/dl RDW 13.9 (11.0-16.0) % Plt Count 284 (160-400) X10*3/uL MPV 9.3 L (9.4-12.3) fL Immature Gran % (Auto) 0.4 (0.0-0.4) % Neut % (Auto) 59.2 (45-73) % Lymph % (Auto) 28.0 (20-40) % Falls % (Auto) 7.2 (2-11) % Eos % (Auto) 4.8 H (0-4) % Baso % (Auto) 0.4 (0-2) % Lymph # (Auto) 2.6 (1.2-4.9) X10*3/uL Falls # (Auto) 0.7 (0.1-1.2) X10*3/uL Eos # (Auto) 0.4 (0.0-0.4) X10*3/uL Baso # (Auto) 0.0 (0.0-0.2) X10*3/uL Abs Immat Gran (auto) 0.04 H (0.00-0.03) X10*3/uL Absolute Neuts (auto) 5.5 (2.0-8.3) x10*3/uL Absolute Nucleated RBC 0.000 (0.0-0.012) X10*3/uL Nucleated RBC % (auto) 0.0 (0.0-0.2) /100WBC ESR 34 H (0-20) MM/HR Sodium 137 (135-145) mmol/L Potassium 4.0 (3.3-5.1) mmol/L Chloride 100 (96-108) mmol/L Carbon Dioxide 28 (22-29) mmol/L Anion Gap 13 (12-20) BUN 10 (9-16) mg/dL Creatinine 0.74 (0.5-1.4) mg/dL Estim Creat Clear Calc 0.1 Estimated GFR > 60 Random Glucose 253 H (60-115) mg/dL Lactic Acid (0.5-2.0) mmol/L Calcium 9.1 (8.4-10.2) mg/dL Total Bilirubin (0.0-1.0) mg/dL Direct Bilirubin (0.0-0.5) mg/dL AST (5-31) U/L ALT (0-31) U/L Alkaline Phosphatase (39-117) U/L Total Creatine Kinase (26-140) U/L C-Reactive Protein (< or = 0.50) mg/dL Total Protein (6.5-8.0) g/dL Albumin (3.5-5.0) g/dL Lipase (8-78) U/L Urine Color Urine Appearance Urine pH (5.0-9.0) Ur Specific [place] (1.005-1.025) Urine Protein (Neg-Trace) mg/dL Urine Glucose (UA) (Negative) mg/dL Urine Ketones (Negative) mg/dL Urine Blood (Negative) Urine Nitrite (Negative) Ur Leukocyte Esterase (Negative) 12/25/22 12/25/22 12/26/22 Range/Units 23:57 23:57 00:11 WBC (4.8-10.8) X10*3/uL RBC (4.20-5.50) X10*6/uL Hgb (12.0-16.0) g/dl Hct (37.0-47.0) % MCV (80.0-98.0) fL MCH (27.0-33.0) pg MCHC (31.0-35.0) g/dl RDW (11.0-16.0) % Plt Count (160-400) X10*3/uL MPV (9.4-12.3) fL Immature Gran % (Auto) (0.0-0.4) % Neut % (Auto) (45-73) % Lymph % (Auto) (20-40) % Falls % (Auto) (2-11) % Eos % (Auto) (0-4) % Baso % (Auto) (0-2) % Lymph # (Auto) (1.2-4.9) X10*3/uL Falls # (Auto) (0.1-1.2) X10*3/uL Eos # (Auto) (0.0-0.4) X10*3/uL Baso # (Auto) (0.0-0.2) X10*3/uL Abs Immat Gran (auto) (0.00-0.03) X10*3/uL Absolute Neuts (auto) (2.0-8.3) x10*3/uL Absolute Nucleated RBC (0.0-0.012) X10*3/uL Nucleated RBC % (auto) (0.0-0.2) /100WBC ESR (0-20) MM/HR Sodium (135-145) mmol/L Potassium (3.3-5.1) mmol/L Chloride (96-108) mmol/L Carbon Dioxide (22-29) mmol/L Anion Gap (12-20) BUN (9-16) mg/dL Creatinine (0.5-1.4) mg/dL Estim Creat Clear Calc Estimated GFR Random Glucose (60-115) mg/dL Lactic Acid 1.2 (0.5-2.0) mmol/L Calcium (8.4-10.2) mg/dL Total Bilirubin 1.0 (0.0-1.0) mg/dL Direct Bilirubin 0.3 (0.0-0.5) mg/dL AST 32 H (5-31) U/L ALT 74 H (0-31) U/L Alkaline Phosphatase 135 H (39-117) U/L Total Creatine Kinase 138 (26-140) U/L C-Reactive Protein 7.06 H (< or = 0.50) mg/dL Total Protein 5.1 L (6.5-8.0) g/dL Albumin 3.1 L (3.5-5.0) g/dL Lipase 21 (8-78) U/L Urine Color Yellow Urine Appearance Clear Urine pH 7.0 (5.0-9.0) Ur Specific [place] >= 1.030 H (1.005-1.025) Urine Protein Negative (Neg-Trace) mg/dL Urine Glucose (UA) 100 H (Negative) mg/dL Urine Ketones Negative (Negative) mg/dL Urine Blood Negative (Negative) Urine Nitrite Negative (Negative) Ur Leukocyte Esterase Negative (Negative) Discharge Plan Discharge Clinical Impression: Back pain, Post-op pain Patient Disposition: Home, Self-Care Additional Instructions: Your physical examination did not reveal any evidence for an infection of the surgical sites on your back. You do have a lot of bruising in your back but this is consistent and expected after an operation Your blood work was unremarkable and is also consistent with postoperative changes. The CT scan of your lumbar spine with IV contrast did not reveal any significant abnormalities. I did speak to the physician sales assistants and salespersons, Maikol Masterson and he felt that you would be better off at a facility that can provide physical therapy rehab that would not be available in the hospital. His opinion is that the sooner you get up and start moving the better you will feel. Therefore we are discharging her back to the rehab facility and hopefully they can figure out how to help with your pain. Prescriptions: No Action lisinopril 20 mg tablet 20 mg PO QAM clonazepam 1 mg tablet 1.5 mg PO BID PRN (Reason: Anxiety) cyanocobalamin (vitamin B-12) 1,000 mcg tablet 1,000 mcg PO DAILY acetaminophen 500 mg tablet 500 mg PO Q8H PRN (Reason: pain) pantoprazole 40 mg tablet,delayed release (DR/EC) 40 mg PO DAILY trazodone 150 mg tablet 150 mg PO BEDTIME PRN (Reason: Insomnia) lovastatin 20 mg tablet 20 mg PO BEDTIME albuterol sulfate 90 mcg/actuation HFA aerosol inhaler 2 puff inhalation Q6H PRN (Reason: wheezing) hydroxyzine HCl 10 mg tablet 10 mg PO TID fluticasone propionate 50 mcg/actuation spray,suspension 2 spray intranasal DAILY fluticasone propionate [Flovent HFA] 110 mcg/actuation HFA aerosol inhaler 1 puff INHALATION BID insulin lispro [Humalog KwikPen Insulin] 100 unit/mL insulin pen SUBCUT Rx Instructions: sliding scale insulin glargine [Lantus Solostar U-100 Insulin] 100 unit/mL (3 mL) insulin pen 50 unit subcut DAILY duloxetine 40 mg capsule,delayed release(DR/EC) 40 mg PO DAILY Gemtesa 75 mg tablet 75 mg PO DAILY oxycodone 5 mg Tablet 10 mg PO Q4H PRN (Reason: Pain, Severe (Pain Scale 7-10)) Qty: 30 0RF Rx Instructions: Partial Fill upon patient request. docusate sodium 100 mg Tablet 100 mg PO BID sennosides 8.6 mg Capsule 17.2 mg PO BID tizanidine 4 mg Capsule 4 mg PO Q8H PRN (Reason: Spasms) OxyContin 15 mg Tablet Extended Release 12 Hr 15 mg PO BEDTIME Rx Instructions: x3 days; set to 12/28/22
[2022-12-25 22:48] LABS: Anion Gap 13 (12-20); Blood Urea Nitrogen 10 mg/dL (9-16); Calcium 9.1 mg/dL (8.4-10.2); Carbon Dioxide 28 mmol/L (22-29); Chloride 100 mmol/L (96-108); Creatinine Clr Calc Pharmacy 0.1; Estimated Glomerular Filt Rate > 60; Glucose Random 253 mg/dL (60-115); Sodium 137 mmol/L (135-145)
[2022-12-25] MEDS: ondansetron HCL 4 MG/2 ML VIAL IVPUSH (23:06)
[2022-12-25] MEDS: Morphine Sulfate 4 MG/ML CARTRIDGE IVPUSH (23:06)
[2022-12-25] MEDS: iohexoL 350 MG/ML 100 ML INFUS..BTL 85 ML IV (23:38)
[2022-12-26 00:02] VITALS: BP 148/67; PULSE 61; RESP 16; TEMP 36.8; O2SAT 95
--- NOTE | 2022-12-26 00:15 | PC.NURSE ---
RN discussed pt with MD Churchill and to make him aware of her reported continued discomfort. Pt reports previous pain medication helped minimally and for a short period of time. RN attempted to educate patient on pain management and potential of not getting pain to a 0 as she is requesting/explaining. Pt remains supine in the stretcher with call kinney and phone within reach. Plan is to attempt to control pt's pain with potential 2 additional 4mg doses of morphine (1 already given; total dose of 3) before moving onto dilaudid.
[2022-12-26 00:16] LABS: Lactic Acid 1.2 mmol/L (0.5-2.0)
[2022-12-26 00:20] LABS: Alanine Aminotransferase 74 U/L (0-31); Albumin Level 3.1 g/dL (3.5-5.0); Alkaline Phosphatase 135 U/L (39-117); Aspartate Amino Transferase 32 U/L (5-31); Bilirubin Direct 0.3 mg/dL (0.0-0.5); C Reactive Protein 7.06 mg/dL (< or = 0.50); Lipase 21 U/L (8-78); Total Protein 5.1 g/dL (6.5-8.0)
[2022-12-26 00:26] LABS: Appearance Urine Clear; Color Urine Yellow; Glucose Urine UA 100 mg/dL (Negative); Leukocyte Esterase Urine Negative (Negative); Nitrite Urine Negative (Negative); Specific Gravity - Urine >= 1.030 (1.005-1.025); Urine Blood Negative (Negative); Urine Ketones Negative (Negative); Urine Protein Negative (Neg-Trace)
[2022-12-26] MEDS: Morphine Sulfate 4 MG/ML CARTRIDGE IVPUSH ×3 (00:36→04:36)
[2022-12-26 00:50] LABS: Erythrocyte Sedimentation Rate 34 MM/HR (0-20)
[2022-12-26 01:26] VITALS: BP 136/58; PULSE 75; RESP 16; TEMP 36.4; O2SAT 96
--- NOTE | 2022-12-26 02:15 | PC.NURSE ---
Rn to bedside for re-eval and check in. Initially upon arrival to bedside pt found to be supine with eyes closed, respirations even and unlabored without dsitress noted. The pt was noted to wake on her own at this RN's presence and although she reports some improvement in her pain s/p previous med administration the pain remains. pt reporting i think it's my kidney as she adds she was born with only one kidney and feels the pain more in her right flank than the lumbar spine/ Pt also requesting IV fluids as she states she has had decreased PO intake over the past week. MD to be made aware and new orders to be ordered.
[2022-12-26] MEDS: 0.9 % Sodium Chloride 1,000 ML 999 ML IV (02:41)
[2022-12-26] MEDS: Acetaminophen 325 MG TABLET 650 MG PO (04:36)
[2022-12-26] MEDS: Cyclobenzaprine HCl 10 MG TABLET PO (04:36)
--- NOTE | 2022-12-26 04:40 | PC.NURSE ---
Pt medicated per MD orders for continued pain. Pt noted to be crying while this RN at bedside. Pt reporting that she was discharged without dc paperwork; RN attempted to make pt aware that when pt's get transferred to a facility sometimes the dc paperwork will be given to EMS directly rather than the patient. Per request, RN printed pt's dc paperwork and reviewed the info with her. Prior to RN's departure from room the pt appears to be more comfortable and is no longer crying out in discomfort. Pt was able to roll onto her left side for this RN to inspect her back incisions as she was unsure whether or not the surgical dressing had been removed
== END 2022-12-26 09:01 ==
PROVIDERS: Emergency Provider Emergency Medicine Emergency Medical Services; PCP Internal Medicine
DX: G89.18 Other acute postprocedural pain (principal); M54.50 Low back pain, unspecified; Z98.1 Arthrodesis status; E11.9 Type 2 diabetes mellitus without complications; I10 Essential (primary) hypertension; E78.5 Hyperlipidemia, unspecified; Z79.4 Long term (current) use of insulin; Z79.02 Long term (current) use of antithrombotics/antiplatelets; Z79.899 Other long term (current) drug therapy
CPT/HCPCS: 36415; 72132; 80048; 80076; 81003; 82550; 83605; 83690; 85025; 85652; 86140; 87040; 96361; 96374; 96375; 96376; 99285; J2270; J2405; Q9967

== ENCOUNTER 2023-01-14 14:02 | Outpatient (REF) | payer OTHER, SELFPAY ==
--- NOTE | ~2023-01-14 | XR_ITS ---
EXAMINATION: XR LUMBOSACRAL SPINE WITH OBLIQUES CLINICAL INFORMATION: Dorsalgia. COMPARISON: Selected images of the lumbar spine CT scan of 12/25/2022. TECHNIQUE: Lumbar spine 4 views; AP, lateral views in neutral, flexion and extension. FINDINGS: There are 5 lumbar-type [id number] vertebrae. Posterior fusion hardware at L4-L5 is again noted with intervertebral disc spacer in place. There are 2 transpedicular screws at each level with vertical interlocking rods. There is very mild grade 1 anterolisthesis of L4 over L5 on neutral view, of approximately 0.2 to 0.3 cm. There does not appear to be significant interval change in the alignment of the spine on flexion view when compared to neutral view. Compared to neutral lateral view minimal grade 1 anterolisthesis of L3 over L4 is noted on the extension view, of approximately 0.2 to 0.3 cm. Remainder of the intervertebral disc spaces are preserved. Mild marginal hypertrophic endplate spurring is noted. Osteopenia. No suspicious lytic or blastic osseous lesions are seen. There are surgical clips in the right upper abdominal quadrant likely from prior cholecystectomy. XR/XR lumbar spine 4V min IMPRESSION: 1. Mild grade 1 anterolisthesis of L4 over L5 on neutral lateral view does not appear to be significantly changed on flexion or extension lateral views. Minimal grade 1 anterolisthesis of L3 over L4 on the extension view is noted when compared to neutral lateral view. 2. No evidence of acute compression fracture or suspicious osseous lesion. Mild lumbar spondylosis.
== END 2023-01-14 14:03 | disposition home or self-care (01) ==
LOC: HO.HOSX 14:02
PROVIDERS: PCP Pediatrics; Visit Provider Physician Assistant
DX: M43.26 Fusion of spine, lumbar region (principal); M54.9 Dorsalgia, unspecified; Z47.89 Encounter for other orthopedic aftercare
CPT/HCPCS: 72110; 99212

== ENCOUNTER 2023-02-14 14:19 | Outpatient (REF) | payer OTHER, SELFPAY ==
--- NOTE | ~2023-02-14 | XR_ITS ---
EXAMINATION: XR LUMBOSACRAL SPINE CLINICAL INFORMATION: Back pain. COMPARISON: None available. TECHNIQUE: 4 views of the lumbar spine, inclusive of flexion and extension. FINDINGS: Redemonstration of posterior fusion hardware with transpedicular screws and vertical rods at L4-L5. Interdisc spacer at L4-L5. Hardware appears intact. Redemonstration of very minimal 2 mm grade 1 anterolisthesis of L4 on L5 with flexion. Redemonstration of very minimal 2 mm grade 1 anterolisthesis of L3 on L4 with extension. Bones are diffusely demineralized. Mild multilevel lumbar spondylosis. XR/XR lumbar spine 4V min IMPRESSION: Very minimal 1-2 mm anterolisthesis of L4 on L5 with flexion and extension redemonstrated. Very minimal 1-2 mm grade 1 anterolisthesis of L3 on L4 with extension redemonstrated.
== END 2023-02-14 14:20 | disposition home or self-care (01) ==
LOC: HO.HOSX 14:19
PROVIDERS: Visit Provider Physician Assistant
DX: M54.9 Dorsalgia, unspecified (principal)
CPT/HCPCS: 72110; 99212

== ENCOUNTER 2023-04-29 09:58 | Outpatient (AMB) | payer OTHER, SELFPAY ==
--- NOTE | 2023-04-29 10:10 | HO.SPINEOV ---
Intake Intake Visit Reasons: 2 month f/u Intake Note: Ms. Ovalles is here today for her 2mo. f/u. 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 She also had a previous anterior cervical fusion done for myelopathy and spinal cord compression. Unfortunately she still continues to hwang with gait disturbance and numbness of her feet. Her balance is off and she uses a walker. I reassured her that we have decompressed everything then the spine that we can possibly decompress to give her the best chance for recovery but unfortunately there may be some underlying neuropathies that may never improve despite our best efforts. She understands this and will continue to make efforts to work with therapy to improve her ability to walk and her balance. I gave her a new referral the PT. we will see her back on his as needed basis at this point. Total amount of time spent in this visit was 20 minutes in discussion of symptoms, recovery from surgery and subsequent plan of care Maikol Dooley MD,PhD [facility] Orders: Orders PT Evaluation and Treatment Today G95.9 - Disease of spinal cord, unspecified, M54.9 - Dorsalgia, unspecified Coding Level of Care Code Est Pt Level 3 (71522) Diagnoses Cervical myelopathy G95.9 Back pain M54.9
== END 2023-04-29 11:59 | disposition home or self-care (01) ==
PROVIDERS: PCP Pediatrics; Visit Provider Physician Assistant
DX: G95.9 Disease of spinal cord, unspecified (principal); M54.9 Dorsalgia, unspecified
CPT/HCPCS: 99213

== ENCOUNTER → 2023-04-29 09:58 | Outpatient (BNVA) | payer OTHER, SELFPAY | PROVIDERS: PCP Pediatrics; Visit Provider Physician Assistant | DX: G95.9 Disease of spinal cord, unspecified (principal); M54.9 Dorsalgia, unspecified; Z98.1 Arthrodesis status | CPT/HCPCS: 99212 ==